=== PATIENT | female | born 1945 | race Caucasian/White ===

== ENCOUNTER 2018-10-09 10:18 | Inpatient (IN) | payer MEDICARE ==
[~2018-10-09] VITALS: Ht 162.6 cm; Wt 59.5 kg
[2018-10-09] MEDS: ALBUTEROL SULF 0.083% NEB SOLN 3 ML NEB NEB SCH ×2 (00:30→14:10)
[~2018-10-09 10:18] MED LIST: AGRYLIN0.5 MG PO; ALENDRONATE SOD70 MG PO; ALLOPURINOL300 MG PO; AMOXICILLIN250 MG PO; ASPIRIN81 MG PEG; CARVEDILOL6.25 MG PO; EVISTA60 MG PO; FUROSEMIDE40 MG PO; KLOR-CON 1010 MEQ PO; LEVOTHYROXINE50 MCG PO; LISINOPRIL10 MG PO; LOVASTATIN40 MG PO; MACROBID 100 M100 MG PO; NITROSTAT0.4 MG SL; NORTRIPTYLINE H50 MG PO; PANTOPRAZOLE SO40 MG PO; SULFAMETHOXAZO1 EAC1 PEG; TEMAZEPAM30 MG PO
--- OUTSIDE RECORDS SUMMARY | 2018-10-09 10:25 | XMS REPORT | Summary of Care ---
Author Organization Unknown Address Unknown Phone Unavailable Encounter [facility] Abby_shlomo(NAVJOT) [id number] Date(s): 01/11/15 - 01/21/15 [facility] [address] [place] [address]- Discharge Disposition: Home Physician Attending: Stefano Black MD Physician Admitting: Stefano Black MD Physician_Referring: Stefano Black MD Vital Signs 1 2 3 Most recent to oldest [Reference Range]: 162.56 cm (01/04/15 11:28 AM) Height 98.3 DegF (01/21/15 4:00 AM) 97.6 DegF (01/21/15 12:07 AM) 98.1 DegF (01/20/15 8:12 PM) Temperature Oral [96.4-99.1 DegF] 143/57 mmHg *HI* (01/21/15 4:00 AM) 146/61 mmHg *HI* (01/21/15 12:07 AM) 149/55 mmHg *HI* (01/20/15 8:12 PM) Blood Pressure [90-140/60-90 mmHg] 16 BRMIN (01/21/15 4:00 AM) 18 BRMIN (01/21/15 12:07 AM) 16 BRMIN (01/20/15 8:12 PM) Respiratory Rate [14-20 BRMIN] 71 bpm (01/21/15 4:00 AM) 76 bpm (01/21/15 12:07 AM) 80 bpm (01/20/15 8:12 PM) Peripheral Pulse Rate [60-100 bpm] 62.727 kg (01/04/15 11:28 AM) Weight 23.74 m2 (01/04/15 11:28 AM) Body Mass Index Problem List Condition Effective Dates Status Health Status Informant Coronary artery Active disease(Confirmed) Heart Active disease(Confirmed) Hypertension(Confirm Active ed) Hypothyroid(Confirme Active d) Incontinence of Active urine(Confirmed) Allergies, Adverse Reactions, Alerts Substance Reaction Severity Status codeine Active penicillins Active Medications allopurinol 300 mg, 1 tab, Route: PO, Drug form: TAB, Daily, Dosing Weight 62.727, kg, Start date: 01/12/15 9:00:00, Duration: 30 day, Stop date: 02/10/15 9:00:00 Notes: (Same as: Zyloprim) Start Date: 01/12/15 Stop Date: 01/17/15 Status: Discontinued allopurinol 300 mg, 1 tab, Route: PO, Drug form: TAB, Daily, Dosing Weight 62.727, kg, Start date: 01/20/15 9:00:00, Duration: 30 day, Stop date: 02/18/15 9:00:00 Notes: (Same as: Zyloprim) Start Date: 01/20/15 Stop Date: 01/21/15 Status: Discontinued allopurinol 300 mg oral tablet 300 mg=1 tab, PO, Daily, # 30 tab, 0 Refill(s) Start Date: 01/04/15 Status: Ordered aspirin 81 mg, 1 tab, Route: PO, Drug form: ECTAB, Daily, Dosing Weight 62.727, kg, Star t date: 01/20/15 9:00:00, Duration: 30 day, Stop date: 02/18/15 9:00:00 Notes: Do not crush or chew.(Same As: Ecotrin) Start Date: 01/20/15 Stop Date: 01/21/15 Status: Discontinued aspirin 81 mg tablet, enteric coated 81 mg=1 tab, PO, Daily, # 0 tab, 0 Refill(s) Start Date: 01/04/15 Status: Ordered atorvastatin 20 mg, 2 tab, Route: PO, Drug form: TAB, Bedtime, Start date: 01/11/15 21:00:00, Duration: 30 day, Stop date: 02/09/15 21:00:00 Notes: (Same As: Lipitor) Start Date: 01/11/15 Stop Date: 01/17/15 Status: Discontinued Benadryl 12.5 mg, 0.25 mL, Route: IV, Drug form: INJ, Q6H, Dosing Weight 62.727, kg, PRN Insomnia, Start date: 01/17/15 21:54:00, Duration: 30 day, Stop date: 02/16/15 2 1:53:00 Notes: (Same as: Benadryl) Start Date: 01/17/15 Stop Date: 01/21/15 Status: Discontinued carvedilol 6.25 mg, 2 tab, Route: PO, Drug form: TAB, Q12H, Dosing Weight 62.727, kg, Start date: 01/11/15 21:00:00, Duration: 30 day, Stop date: 02/10/15 9:00:00 Notes: Give with food. (Same As: Coreg) Start Date: 01/11/15 Stop Date: 01/17/15 Status: Discontinued carvedilol 6.25 mg oral tablet 6.25 mg=1 tab, PO, Q12H, # 60 tab, 0 Refill(s) Start Date: 01/04/15 Status: Ordered ciprofloxacin (SCIP) 400 mg, 200 mL, Route: IVPB, Drug form: INJ, Q12H, Dosing Weight 62.727, kg, Sta rt date: 01/11/15 21:00:00, Duration: 1 doses or times, Stop date: 01/11/15 21:0 0:00 Notes: Do not refrigerate Start Date: 01/11/15 Stop Date: 01/11/15 Status: Completed Colace 100 mg oral capsule 100 mg=1 cap, PO, BID, Constipation, # 20 cap, 0 Refill(s) Start Date: 01/21/15 Status: Ordered Coreg 6.25 mg, 2 tab, Route: PO, Drug form: TAB, Q12H, Dosing Weight 62.727, kg, Start date: 01/19/15 21:00:00, Duration: 30 day, Stop date: 02/18/15 9:00:00 Notes: Give with food. (Same As: Coreg) Start Date: 01/19/15 Stop Date: 01/21/15 Status: Discontinued D5W 1/2NS + KCL 20mEq/L 1000ml (Premix) 1,000 mL 1,000 mL, Rate: 75 ml/hr, Infuse over: 13.3 hr, Route: IV, Dosing Weight 62.727 kg, Total Volume: 1,000, Start date: 01/11/15 13:00:00, Stop date: 02/10/15 12:5 9:00 Notes: PREMIX IV - Do Not Alter Start Date: 01/11/15 Stop Date: 01/20/15 Status: Discontinued Dextrose 50% Syringe 25 gm, 50 mL, Route: IVP, Drug Form: INJ, Dosing Weight 62.727, kg, PRN, PRN Blo od Glucose Results, Start date: 01/18/15 14:02:00, Duration: 30 day, Stop date: 02/17/15 15:01:00 Start Date: 01/18/15 Stop Date: 01/21/15 Status: Discontinued Dextrose 50% Syringe 12.5 gm, 25 mL, Route: IVP, Drug Form: INJ, Dosing Weight 62.727, kg, PRN, PRN B lood Glucose Results, Start date: 01/18/15 14:02:00, Duration: 30 day, Stop date : 02/17/15 15:01:00 Start Date: 01/18/15 Stop Date: 01/21/15 Status: Discontinued enoxaparin 40 mg, 0.4 mL, Route: SUB-Q, Drug form: INJ, [id number], Dosing Weight 62.727, kg, Start date: 01/11/15 15:00:00, Duration: 30 day, Stop date: 02/09/15 15:00:00 Notes: (Same as: Lovenox) Start Date: 01/11/15 Stop Date: 01/21/15 Status: Discontinued erythromycin + Sodium Chloride 0.9% IV 100 mL 250 mg, Route: IVPB, [id number], Dosing Weight 62.727, kg, Priority: NOW, Start date : 01/17/15 18:47:00, Stop date: 01/18/15 20:00:00 Notes: (Same as: erythromycin lactobionate) Start Date: 01/17/15 Stop Date: 01/18/15 Status: Completed famotidine 20 mg, 1 tab, Route: PO, Drug form: TAB, Q12H, Dosing Weight 62.727, kg, Start d ate: 01/11/15 21:00:00, Duration: 30 day, Stop date: 02/10/15 9:00:00 Notes: (Same as: Pepcid) Start Date: 01/11/15 Stop Date: 01/17/15 Status: Discontinued Ferrlecit + Sodium Chloride 0.9% IV 100 mL 125 mg, 10 mL, Route: IVPB, Drug form: INJ, ONCE, Dosing Weight 62.727, kg, Star t date: 01/19/15 16:30:00, Stop date: 01/19/15 16:30:00 Notes: (sodium ferric gluconate complex (elemental iron) 62.5 mg/5 ml INJ)"Limit ed stability. Use immediately after admixture" (Same as: Ferrlecit) Start Date: 01/19/15 Stop Date: 01/19/15 Status: Completed ferrous sulfate 325 mg, 1 tab, Route: PO, Drug form: ECTAB, Daily, Dosing Weight 62.727, kg, Sta rt date: 01/20/15 9:00:00, Duration: 30 day, Stop date: 02/18/15 9:00:00 Notes: Give with food. "Do Not Crush" Start Date: 01/20/15 Stop Date: 01/21/15 Status: Discontinued ferrous sulfate 325 mg oral enteric coated tablet 325 mg=1 tab, PO, Daily, # 30 tab, 0 Refill(s) Start Date: 01/21/15 Status: Ordered Flagyl 500 mg, 100 mL, Route: IVPB, Drug form: INJ, [id number], Dosing Weight 62.727, kg, S tart date: 01/19/15 16:00:00, Duration: 30 day, Stop date: 02/18/15 8:00:00 Notes: (Same as: Flagyl) Avoid alcohol. Start Date: 01/19/15 Stop Date: 01/21/15 Status: Discontinued Flagyl 375 oral capsule 375 mg=1 cap, PO, BID, # 20 cap, 0 Refill(s) Start Date: 01/21/15 Stop Date: 01/31/15 Status: Ordered furosemide 40 mg, 4 mL, Route: IVP, Drug form: INJ, Daily, Dosing Weight 62.727, kg, Start date: 01/18/15 17:03:00, Duration: 30 day, Stop date: 02/17/15 9:00:00 Notes: (Same as: Lasix) Start Date: 01/18/15 Stop Date: 01/20/15 Status: Discontinued furosemide 40 mg oral tablet 40 mg=1 tab, PO, Daily, # 30 tab, 0 Refill(s) Start Date: 01/04/15 Status: Ordered furosemide 40 mg oral tablet 40 mg, 1 tab, Route: PO, Drug form: TAB, Daily, Dosing Weight 62.727, kg, Start date: 01/12/15 9:00:00, Duration: 30 day, Stop date: 02/10/15 9:00:00 Notes: (Same as: Lasix) May cause GI upset. Give with food or milk. Start Date: 01/12/15 Stop Date: 01/18/15 Status: Discontinued glucagon 1 mg, Route: IM, Drug form: PDR/INJ, PRN, Dosing Weight 62.727, kg, PRN Blood Gl ucose Results, Start date: 01/18/15 14:02:00, Duration: 30 day, Stop date: 02/17 15:01:00 Start Date: 01/18/15 Stop Date: 01/21/15 Status: Discontinued hydrALAZINE 10 mg, 0.5 mL, Route: IV, Drug form: INJ, TID, Dosing Weight 62.727, kg, PRN Hyp ertension, SBP > 170, Start date: 01/17/15 21:54:00, Duration: 30 day, Stop date: 02/16/15 21:53:00 Notes: (Same as: Apresoline)Push over 5 minutes Start Date: 01/17/15 Stop Date: 01/21/15 Status: Discontinued insulin aspart 2 unit, 0.02 mL, Route: SUB-Q, Drug form: SOLN, Sliding Scale, Dosing Weight 62. 727, kg, PRN Blood Glucose Results, Start date: 01/18/15 14:02:00, Duration: 30 day, Stop date: 02/17/15 15:01:00 Notes: Roll in palms of hands gently; Do not shake vigorously. (Same as: NovoLO G)"single patient use only" Stable for 28 days at room temperature.Expires in _ ____ days from Date Start Date: 01/18/15 Stop Date: 01/21/15 Status: Discontinued insulin aspart 1 unit, 0.01 mL, Route: SUB-Q, Drug form: SOLN, Sliding Scale, Dosing Weight 62. 727, kg, PRN Blood Glucose Results, Start date: 01/18/15 14:02:00, Duration: 30 day, Stop date: 02/17/15 15:01:00 Notes: Roll in palms of hands gently; Do not shake vigorously. (Same as: NovoLO G)"single patient use only" Stable for 28 days at room temperature.Expires in _ ____ days from Date Start Date: 01/18/15 Stop Date: 01/21/15 Status: Discontinued insulin aspart 3 unit, 0.03 mL, Route: SUB-Q, Drug form: SOLN, Sliding Scale, Dosing Weight 62. 727, kg, PRN Blood Glucose Results, Start date: 01/18/15 14:02:00, Duration: 30 day, Stop date: 02/17/15 15:01:00 Notes: Roll in palms of hands gently; Do not shake vigorously. (Same as: NovoLO G)"single patient use only" Stable for 28 days at room temperature.Expires in _ ____ days from Date Start Date: 01/18/15 Stop Date: 01/21/15 Status: Discontinued insulin aspart 4 unit, 0.04 mL, Route: SUB-Q, Drug form: SOLN, Sliding Scale, Dosing Weight 62. 727, kg, PRN Blood Glucose Results, Start date: 01/18/15 14:02:00, Duration: 30 day, Stop date: 02/17/15 15:01:00 Notes: Roll in palms of hands gently; Do not shake vigorously. (Same as: NovoLO G)"single patient use only" Stable for 28 days at room temperature.Expires in _ ____ days from Date Start Date: 01/18/15 Stop Date: 01/21/15 Status: Discontinued insulin aspart 5 unit, 0.05 mL, Route: SUB-Q, Drug form: SOLN, Sliding Scale, Dosing Weight 62. 727, kg, PRN Blood Glucose Results, Start date: 01/18/15 14:02:00, Duration: 30 day, Stop date: 02/17/15 15:01:00 Notes: Roll in palms of hands gently; Do not shake vigorously. (Same as: NovoLO G)"single patient use only" Stable for 28 days at room temperature.Expires in _ ____ days from Date Start Date: 01/18/15 Stop Date: 01/21/15 Status: Discontinued Klor-Con 10 PO, BID, 0 Refill(s) Start Date: 01/04/15 Status: Ordered Lactated Ringers Injection IV 1000 mL 1,000 mL, Rate: 25 ml/hr, Infuse over: 40 hr, Route: IV, Dosing Weight 62.727 kg , Total Volume: 1,000, Start date: 01/11/15 6:51:00, Duration: 30 day, Stop date : 02/10/15 6:50:00 Start Date: 01/11/15 Stop Date: 01/11/15 Status: Discontinued Lasix 40 mg oral tablet 40 mg, 1 tab, Route: PO, Drug form: TAB, Daily, Dosing Weight 62.727, kg, Start date: 01/21/15 9:00:00, Duration: 30 day, Stop date: 02/19/15 9:00:00 Notes: (Same as: Lasix) May cause GI upset. Give with food or milk. Start Date: 01/21/15 Stop Date: 01/21/15 Status: Discontinued levothyroxine 50 microgram, 1 tab, Route: PO, Drug form: TAB, [id number], Dosing Weight 62.727, kg , Start date: 01/20/15 6:30:00, Duration: 30 day, Stop date: 02/18/15 6:30:00 Notes: Take 1 hour before or 2 hours after meal; Enteral feeds may interefere wi th the absorption of this medication.(Same as:Levothroid, Synthroid) Start Date: 01/20/15 Stop Date: 01/21/15 Status: Discontinued levothyroxine 50 microgram, 1 tab, Route: PO, Drug form: TAB, Daily, Dosing Weight 62.727, kg, Start date: 01/12/15 9:00:00, Duration: 30 day, Stop date: 02/10/15 9:00:00 Notes: Take 1 hour before or 2 hours after meal; Enteral feeds may interefere wi th the absorption of this medication.(Same as:Levothroid, Synthroid) Start Date: 01/12/15 Stop Date: 01/17/15 Status: Discontinued levothyroxine 50 mcg (0.05 mg) oral tablet 50 microgram=1 tab, PO, Daily, # 60 tab, 0 Refill(s) Start Date: 01/04/15 Status: Ordered Lipitor 20 mg, 2 tab, Route: PO, Drug form: TAB, Bedtime, Start date: 01/19/15 21:00:00, Duration: 30 day, Stop date: 02/17/15 21:00:00 Notes: (Same As: Lipitor) Start Date: 01/19/15 Stop Date: 01/21/15 Status: Discontinued lisinopril 5 mg, 1 tab, Route: PO, Drug form: TAB, Daily, Dosing Weight 62.727, kg, Start d ate: 01/20/15 9:00:00, Duration: 30 day, Stop date: 02/18/15 9:00:00 Notes: (Same as: Prinivil, Zestril) Start Date: 01/20/15 Stop Date: 01/21/15 Status: Discontinued lisinopril 5 mg, 1 tab, Route: PO, Drug form: TAB, Daily, Dosing Weight 62.727, kg, Start d ate: 01/12/15 9:00:00, Duration: 30 day, Stop date: 02/10/15 9:00:00 Notes: (Same as: Prinivil, Zestril) Start Date: 01/12/15 Stop Date: 01/17/15 Status: Discontinued lisinopril 5 mg oral tablet 5 mg=1 tab, PO, Daily, # 30 tab, 0 Refill(s) Start Date: 01/04/15 Status: Ordered lovastatin 40 mg, Route: PO, Drug form: TAB, Bedtime, Dosing Weight 62.727, kg, Start date: 01/11/15 21:00:00, Duration: 30 day, Stop date: 02/09/15 21:00:00 Start Date: 01/11/15 Stop Date: 01/11/15 Status: Deleted lovastatin 40 mg, Route: PO, Drug form: TAB, Bedtime, Dosing Weight 62.727, kg, Start date: 01/19/15 21:00:00, Duration: 30 day, Stop date: 02/17/15 21:00:00 Start Date: 01/19/15 Stop Date: 01/19/15 Status: Deleted lovastatin 40 mg oral tablet 40 mg=1 tab, PO, Bedtime, # 30 tab, 0 Refill(s) Start Date: 01/04/15 Status: Ordered magnesium sulfate 2 gm in Water 50 ml 2 gm, 50 mL, Route: IVPB, Drug form: INJ, ONCE, Dosing Weight 62.727, kg, Start date: 01/20/15 11:21:00, Duration: 2 hr, Stop date: 01/20/15 11:21:00 Start Date: 01/20/15 Stop Date: 01/20/15 Status: Completed metoprolol 5 mg/5 ml INJ 2.5 mg, 2.5 mL, Route: IVP, Drug form: INJ, Q6H, Dosing Weight 62.727, kg, Start date: 01/19/15 12:00:00, Duration: 30 day, Stop date: 02/18/15 6:00:00 Notes: (Same as: Lopressor)Push over 2 minutes Start Date: 01/19/15 Stop Date: 01/19/15 Status: Discontinued morphine 1 mg/ml [employer] (30 mg/30 mL) INJ Syringe 30 mg 30 mg, 30 mL, Route: IV, Initial Loading Dose: 2 mg, [employer] Dose: 1 mg, [employer] Lockou t: 10 minutes, Continuous Basal Rate: 0 mg, 4 Hour Limit (In MG): 30, Drug Form: INJ, Continuous, Start date: 01/11/15 13:00:00, Duration: 30 day, Stop date: 13:5... Notes: Dose: Delay: Basal rate: 4hr limit:( Same as:Elsai-Clayton) Start Date: 01/11/15 Stop Date: 01/18/15 Status: Discontinued morphine Sulfate 0.5 mg, 0.25 mL, Route: IVP, Drug form: INJ, Q2H, Dosing Weight 62.727, kg, PRN Pain Score 7-10, Start date: 01/17/15 17:44:00, Duration: 30 day, Stop date: 17:43:00 Notes: (Same as:MORPhine Sulfate) Start Date: 01/17/15 Stop Date: 01/21/15 Status: Discontinued naloxone 0.04 mg, 0.1 mL, Route: IVP, Drug form: INJ, Q2MIN, Dosing Weight 62.727, kg, NH N Narcotic Reversal, Start date: 01/11/15 13:00:00, Duration: 30 day, Stop date: 02/10/15 13:59:00 Notes: Same as Narcan Start Date: 01/11/15 Stop Date: 01/21/15 Status: Discontinued Nitrostat 0.4 mg sublingual tablet 0.4 mg=1 tab, SL, Q5Min, Chest Pain, # 100 tab, 0 Refill(s) Start Date: 01/04/15 Status: Ordered Nitrostat 0.4 mg sublingual tablet 0.4 mg, 1 tab, Route: SL, Drug form: TAB, Q5Min, Dosing Weight 62.727, kg, PRN a s needed for chest pain, Start date: 01/11/15 13:10:00, Duration: 30 day, Stop d ate: 02/10/15 14:09:00 Notes: (Same as:Nitroquick, Nitrostat)"Do Not Crush" Sublingual tablet Start Date: 01/11/15 Stop Date: 01/21/15 Status: Discontinued nortriptyline 50 mg, 1 cap, Route: PO, Drug form: CAP, Daily, Dosing Weight 62.727, kg, Start date: 01/12/15 9:00:00, Stop date: 02/10/15 21:00:00 Notes: (Same as:Pamelnicolasa Aventyl) Start Date: 01/12/15 Stop Date: 01/17/15 Status: Discontinued nortriptyline 50 mg oral capsule 50 mg=1 cap, PO, Daily, # 90 cap, 0 Refill(s) Start Date: 01/04/15 Status: Ordered Ofirmev 1,000 mg, 100 mL, Route: IV, Drug form: INJ, Q6H, Dosing Weight 62.727, kg, PRN Pain Score 1-3, for > or=50 kg, Start date: 01/17/15 17:44:00, Duration: 30 day, Stop date: 02/16/15 17:43:00 Notes: Infuse over 15 minutes Do not exceed 4gm/day of acetaminophen Start Date: 01/17/15 Stop Date: 01/21/15 Status: Discontinued ondansetron 4 mg, 2 mL, Route: IVP, Drug form: INJ, Q4H, Dosing Weight 62.727, kg, PRN Nause a & Vomiting, Start date: 01/15/15 10:33:00, Duration: 30 day, Stop date: 02/14/15 10:32:00 Notes: (Same as: Zofran) Start Date: 01/15/15 Stop Date: 01/21/15 Status: Discontinued ondansetron 4 mg, 2 mL, Route: IVP, Drug form: INJ, Q6H, Dosing Weight 62.727, kg, PRN Nause a & Vomiting, Start date: 01/11/15 13:00:00, Duration: 30 day, Stop date: 02/10/15 12:59:00 Notes: (Same as: Zofran) Start Date: 01/11/15 Stop Date: 01/15/15 Status: Discontinued oxybutynin 5 mg, 1 tab, Route: PO, Drug form: TAB, TID, Dosing Weight 62.727, kg, PRN Bladd er Spasm, Start date: 01/11/15 13:00:00, Duration: 30 day, Stop date: 02/10/15 1 2:59:00 Notes: Same as: Ditropan) Start Date: 01/11/15 Stop Date: 01/17/15 Status: Discontinued pantoprazole 40 mg, 1 tab, Route: PO, Drug form: ECTAB, Daily, Dosing Weight 62.727, kg, Star t date: 01/12/15 9:00:00, Duration: 30 day, Stop date: 02/10/15 9:00:00 Notes: Tablet should not be chewed or crushed.(Same as: Protonix) Start Date: 01/12/15 Stop Date: 01/17/15 Status: Discontinued pantoprazole 40 mg oral enteric coated tablet 40 mg=1 tab, PO, Daily, # 30 tab, 0 Refill(s) Start Date: 01/04/15 Status: Ordered Pepto-Bismol 87.3333 mg, 5 ml, Route: PO, Drug Form: SUSP, Dosing Weight 62.727, kg, QID, PRN Indigestion, Start date: 01/16/15 12:00:00, Duration: 30 day, Stop date: 11:59:00 Notes: (Same As: Pepto Bismol and Kaopectate) Start Date: 01/16/15 Stop Date: 01/21/15 Status: Discontinued Phenergan + Sodium Chloride 0.9% IV 50 mL 12.5 mg, 0.5 mL, Route: IVPB, Q4H, Dosing Weight 62.727, kg, PRN Nausea & Vomiting, Start date: 01/14/15 12:12:00, Duration: 30 day, Stop date: 02/13/15 12:11:00 Notes: Do not give IV push. (Same as: Phenergan) Start Date: 01/14/15 Stop Date: 01/15/15 Status: Discontinued potassium chloride 10 mEq oral tablet, extended release 10 mEq, 1 tab, Route: PO, Drug form: ERTAB, Q12H, Dosing Weight 62.727, kg, Star t date: 01/19/15 21:00:00, Duration: 30 day, Stop date: 02/18/15 9:00:00 Notes: (Same as: K-Dur 10)"Do Not Crush" With food and full glass of water Start Date: 01/19/15 Stop Date: 01/21/15 Status: Discontinued Protonix 40 mg, 1 tab, Route: PO, Drug form: ECTAB, Before Breakfast, Dosing Weight 62.72 7, kg, Start date: 01/20/15 7:30:00, Duration: 30 day, Stop date: 02/18/15 7:30: 00 Notes: Tablet should not be chewed or crushed.(Same as: Protonix) Start Date: 01/20/15 Stop Date: 01/21/15 Status: Discontinued Reglan 10 mg, 2 mL, Route: IVP, Drug form: INJ, Q6H, Dosing Weight 62.727, kg, PRN Naus ea & Vomiting, Start date: 01/19/15 12:29:00, Duration: 30 day, Stop date: 02/18/15 12:28:00 Notes: (Same as: Reglan) Start Date: 01/19/15 Stop Date: 01/21/15 Status: Discontinued Saline Flush 0.9% 10 ml, Route: IVP, Drug Form: INJ, Dosing Weight 62.727, kg, PRN, PRN Line Flush , Start date: 01/20/15 7:16:00, Duration: 30 day, Stop date: 02/19/15 8:15:00 Start Date: 01/20/15 Stop Date: 01/20/15 Status: Deleted Saline Flush 0.9% 10 ml, Route: IVP, Drug Form: INJ, Dosing Weight 62.727, kg, Q12H, Start date: 0 01/20/15 9:00:00, Duration: 30 day, Stop date: 02/18/15 21:00:00 Notes: (Same as: BD Posiflush) Start Date: 01/20/15 Stop Date: 01/21/15 Status: Discontinued Saline Flush 0.9% 10 ml, Route: IVP, Drug Form: INJ, Dosing Weight 62.727, kg, PRN, PRN Line Flush , Start date: 01/11/15 13:00:00, Duration: 30 day, Stop date: 02/10/15 13:59:00 Notes: Same as: BD Posiflush Sterile Start Date: 01/11/15 Stop Date: 01/21/15 Status: Discontinued scopolamine 1.5 mg transdermal film 1 patch, Route: TOP, Drug Form: ERFILM, Dosing Weight 62.727, kg, ONCALL, Start date: 01/11/15 7:00:00, Duration: 30 day, Stop date: 02/10/15 7:59:00 Start Date: 01/11/15 Stop Date: 01/11/15 Status: Completed temazepam 30 mg, 2 cap, Route: PO, Drug form: CAP, Bedtime, Dosing Weight 62.727, kg, PRN Sleep, Start date: 01/19/15 16:28:00, Duration: 30 day, Stop date: 02/18/15 16:2 7:00 Notes: (Same As: Restoril) Start Date: 01/19/15 Stop Date: 01/21/15 Status: Discontinued temazepam 30 mg, 2 cap, Route: PO, Drug form: CAP, Bedtime, Dosing Weight 62.727, kg, Star t date: 01/11/15 21:00:00, Duration: 30 day, Stop date: 02/09/15 21:00:00 Notes: (Same As: Restoril) Start Date: 01/11/15 Stop Date: 01/17/15 Status: Discontinued temazepam 30 mg oral capsule 30 mg=1 cap, PO, Daily, Sleep, 0 Refill(s) Start Date: 01/04/15 Status: Ordered tramadol 50 mg oral tablet 50 mg=1 tab, PO, Q6H, Pain, # 40 tab, 0 Refill(s) Start Date: 01/21/15 Stop Date: 01/31/15 Status: Ordered tramadol 50 mg oral tablet 50 mg, 1 tab, Route: PO, Drug form: TAB, Q6H, Dosing Weight 62.727, kg, PRN Pain Score 1-3, Start date: 01/12/15 14:21:00, Stop date: 02/11/15 14:20:00 Notes: Not to exceed 400mg/day. (Same As: Ultram) Start Date: 01/12/15 Stop Date: 01/21/15 Status: Discontinued Results ELECTROLYTES 1 2 3 Most recent to oldest [Reference Range]: 140 mEq/L (01/21/15 5:36 AM) 136 mEq/L (01/19/15 7:30 AM) 134 mEq/L *LOW* (01/18/15 10:36 AM) Sodium Lvl [135-145 mEq/L] 3.3 mEq/L *LOW* (01/21/15 5:36 AM) 4.2 mEq/L (01/19/15 7:30 AM) 4.4 mEq/L (01/18/15 10:36 AM) Potassium Lvl [3.5-5.1 mEq/L] 107 mEq/L (01/21/15 5:36 AM) 101 mEq/L (01/19/15 7:30 AM) 98 mEq/L (01/18/15 10:36 AM) Chloride Lvl [95-109 mEq/L] 25 mEq/L (01/21/15 5:36 AM) 28 mEq/L (01/19/15 7:30 AM) 29 mEq/L (01/18/15 10:36 AM) CO2 [24-32 mEq/L] 11.3 mEq/L (01/21/15 5:36 AM) 11.2 mEq/L (01/19/15 7:30 AM) 11.4 mEq/L (01/18/15 10:36 AM) AGAP [10.0-20.0 mEq/L] CHEM PANEL 1 2 3 Most recent to oldest [Reference Range]: 0.9 mg/dL (01/21/15 5:36 AM) 0.8 mg/dL (01/19/15 7:30 AM) 1.0 mg/dL (01/18/15 10:36 AM) Creatinine Lvl [0.5-1.4 mg/dL] 65 mL/min/1.73m2 1 *NA* (01/21/15 5:36 AM) 74 mL/min/1.73m2 2 *NA* (01/19/15 7:30 AM) 57 mL/min/1.73m2 3 *NA* (01/18/15 10:36 AM) eGFR 6 mg/dL *LOW* (01/21/15 5:36 AM) 8 mg/dL (01/19/15 7:30 AM) 9 mg/dL (01/18/15 10:36 AM) BUN [7-22 mg/dL] 10 (01/19/15 7:30 AM) B/C Ratio [6-25] 101 mg/dL 4 *HI* (01/21/15 5:36 AM) 99 mg/dL 5 (01/19/15 7:30 AM) 122 mg/dL 6 *HI* (01/18/15 10:36 AM) Glucose Lvl [70-99 mg/dL] 4.8 g/dL *LOW* (01/19/15 7:30 AM) Total Protein [6.4-8.4 g/dL] 2.1 g/dL *LOW* (01/19/15 7:30 AM) Albumin Lvl [3.5-5.0 g/dL] 2.7 g/dL (01/19/15 7:30 AM) Globulin [2.0-4.0 g/dL] 0.8 (01/19/15 7:30 AM) A/G Ratio [0.7-1.6] 7.7 mg/dL *LOW* (01/21/15 5:36 AM) 8.0 mg/dL *LOW* (01/19/15 7:30 AM) 8.1 mg/dL *LOW* (01/18/15 10:36 AM) Calcium Lvl [8.5-10.5 mg/dL] 3.4 mg/dL (01/21/15 5:36 AM) 2.7 mg/dL (01/20/15 7:11 AM) 3.1 mg/dL (01/19/15 7:30 AM) Phosphorus [2.5-4.5 mg/dL] 2.0 mg/dL (01/21/15 5:36 AM) 1.6 mg/dL *LOW* (01/20/15 7:11 AM) 1.9 mg/dL (01/19/15 7:30 AM) Magnesium Lvl [1.8-2.4 mg/dL] 12 unit/L (01/19/15 7:30 AM) ALT [0-65 unit/L] 12 unit/L (01/19/15 7:30 AM) AST [0-37 unit/L] 126 unit/L (01/19/15 7:30 AM) Alk Phos [39-136 unit/L] 0.7 mg/dL (01/19/15 7:30 AM) Bili Total [0.2-1.3 mg/dL] 43 unit/L (01/20/15 7:11 AM) Amylase Lvl [25-115 unit/L] 327 unit/L (01/20/15 7:11 AM) Lipase Lvl [73-393 unit/L] 0.25 ng/mL *HI* (01/18/15 5:25 PM) Procalcitonin Lvl [0.00-0.10 ng/mL] 1Result Comment: The eGFR is calculated using the CKD-EPI formula. In most young, healthy individuals the eGFR will be >90 mL/min/1.73m2. The eGFR declines with age. An eGFR of 60-89 may be normal in some populations, particularly the elderly, for whom the CKD-EPI formula has not been extensively validated. Use of the eGFR is not recommended in the following populations: Individuals with unstable creatinine concentrations, including patients and those with serious co-morbid conditions. Patients with extremes in muscle mass or diet. The data above are obtained from the [employer] ( [employer]) which additionally recommends that when the eGFR is used in patients with extremes of body mass index for purposes of drug dosing, the eGFR should be mul tiplied by the estimated BMI. 2Result Comment: The eGFR is calculated using the CKD-EPI formula. In most young, healthy individuals the eGFR will be >90 mL/min/1.73m2. The eGFR declines with age. An eGFR of 60-89 may be normal in some populations, particularly the elderly, for whom the CKD-EPI formula has not been extensively validated. Use of the eGFR is not recommended in the following populations: Individuals with unstable creatinine concentrations, including patients and those with serious co-morbid conditions. Patients with extremes in muscle mass or diet. The data above are obtained from the National Kidney Disease Education Program ( NKDEP) which additionally recommends that when the eGFR is used in patients with extremes of body mass index for purposes of drug dosing, the eGFR should be mul tiplied by the estimated BMI. 3Result Comment: The eGFR is calculated using the CKD-EPI formula. In most young, healthy individuals the eGFR will be >90 mL/min/1.73m2. The eGFR declines with age. An eGFR of 60-89 may be normal in some populations, particularly the elderly, for whom the CKD-EPI formula has not been extensively validated. Use of the eGFR is not recommended in the following populations: Individuals with unstable creatinine concentrations, including patients and those with serious co-morbid conditions. Patients with extremes in muscle mass or diet. The data above are obtained from the National Kidney Disease Education Program ( NKDEP) which additionally recommends that when the eGFR is used in patients with extremes of body mass index for purposes of drug dosing, the eGFR should be mul tiplied by the estimated BMI. 4Interpretive Data: Adult reference range values reflect the clinical guidelines of the [employer]. 5Interpretive Data: Adult reference range values reflect the clinical guidelines of the [employer]. 6Interpretive Data: Adult reference range values reflect the clinical guidelines of the [employer]. ANEMIA STUDY 1 2 3 Most recent to oldest [Reference Range]: 19 ug/dl *LOW* (01/19/15 7:30 AM) Iron [30-160 ug/dl] 46 ng/mL (01/19/15 7:30 AM) Ferritin Lvl [5-204 ng/mL] 9 % *LOW* (01/19/15 7:30 AM) % Satur Fe [12-57 %] 204 ug/dl (01/19/15 7:30 AM) UIBC [110-370 ug/dl] 983 pg/mL (01/19/15 7:30 AM) Vitamin B12 Lvl [254-1320 pg/mL] 10.1 ng/mL (01/19/15 7:30 AM) Folate Lvl [>=3.0 ng/mL] 223 ug/dl *LOW* (01/19/15 7:30 AM) TIBC [228-428 ug/dl] THYROID PANEL 1 2 3 Most recent to oldest [Reference Range]: 39 % (01/18/15 10:36 AM) T3 Uptake [31-39 %] 10.3 ug/dl (01/18/15 10:36 AM) T4 [4.7-13.3 ug/dl] 4.0 *NA* (01/18/15 10:36 AM) FTI 2.520 uIU/mL (01/18/15 10:36 AM) TSH [0.360-3.740 uIU/mL] URINE AND STOOL 1 2 3 Most recent to oldest [Reference Range]: Clear (01/18/15 6:35 PM) Clear (01/13/15 5:57 PM) Marked *ABN* (01/04/15 11:31 AM) UA Turbidity [Clear] Ltyellow *NA* (01/18/15 6:35 PM) Ltyellow *NA* (01/13/15 5:57 PM) UA Color Yellow *NA* (01/04/15 11:31 AM) UA Color [Yellow] 6.0 (01/18/15 6:35 PM) 5.0 (01/13/15 5:57 PM) 6.0 (01/04/15 11:31 AM) UA pH [5.0-8.0] 1.005 (01/18/15 6:35 PM) 1.014 (01/13/15 5:57 PM) 1.005 (01/04/15 11:31 AM) UA Spec Grav [<=1.030] Negative mg/dL *NA* (01/18/15 6:35 PM) Negative mg/dL *NA* (01/13/15 5:57 PM) Negative mg/dL *NA* (01/04/15 11:31 AM) UA Glucose [Negative mg/dL] Negative (01/18/15 6:35 PM) Small *ABN* (01/13/15 5:57 PM) Negative (01/04/15 11:31 AM) UA Blood [Negative] Negative mg/dL *NA* (01/18/15 6:35 PM) Negative mg/dL *NA* (01/13/15 5:57 PM) Negative mg/dL *NA* (01/04/15 11:31 AM) UA Ketones [Negative mg/dL] Negative mg/dL (01/18/15 6:35 PM) Negative mg/dL (01/13/15 5:57 PM) Negative mg/dL (01/04/15 11:31 AM) UA Protein [Negative mg/dL] <=1.0 mg/dL *NA* (01/18/15 6:35 PM) <=1.0 mg/dL *NA* (01/13/15 5:57 PM) <=1.0 mg/dL *NA* (01/04/15 11:31 AM) UA Urobilinogen [0.1-1.0 mg/dL] Negative *NA* (01/18/15 6:35 PM) Negative *NA* (01/13/15 5:57 PM) Negative *NA* (01/04/15 11:31 AM) UA Bili [Negative] Large *ABN* (01/18/15 6:35 PM) Trace *ABN* (01/13/15 5:57 PM) Large *ABN* (01/04/15 11:31 AM) UA Leuk Est [Negative] Negative (01/18/15 6:35 PM) Negative (01/13/15 5:57 PM) Negative (01/04/15 11:31 AM) UA Nitrite [Negative] 20 /HPF *HI* (01/18/15 6:35 PM) 8 /HPF *HI* (01/13/15 5:57 PM) >182 /HPF *HI* (01/04/15 11:31 AM) UA WBC [0-5 /HPF] 3 /HPF *HI* (01/18/15 6:35 PM) 2 /HPF (01/13/15 5:57 PM) 21 /HPF *HI* (01/04/15 11:31 AM) UA RBC [0-2 /HPF] Occasional /HPF *NA* (01/18/15 6:35 PM) Few /HPF *NA* (01/04/15 11:31 AM) UA Bacteria [None Seen /HPF] Few /LPF *NA* (01/18/15 6:35 PM) Occasional /LPF *NA* (01/13/15 5:57 PM) UA Sq Epi [Few /LPF] None Seen *NA* (01/04/15 11:31 AM) UA Sq Epi 1 /LPF (01/13/15 5:57 PM) UA Hyal Cast [0-2 /LPF] HEMATOLOGY 1 2 3 Most recent to oldest [Reference Range]: 16.9 K/CMM *HI* (01/21/15 5:36 AM) 16.6 K/CMM *HI* (01/20/15 7:11 AM) 21.6 K/CMM *HI* (01/19/15 7:30 AM) WBC [3.7-10.4 K/CMM] 6.06 M/CMM *HI* (01/21/15 5:36 AM) 5.88 M/CMM *HI* (01/20/15 7:11 AM) 6.25 M/CMM *HI* (01/19/15 7:30 AM) RBC [4.20-5.40 M/CMM] 13.8 g/dL (01/21/15 5:36 AM) 13.3 g/dL (01/20/15 7:11 AM) 14.2 g/dL (01/19/15 7:30 AM) Hgb [12.0-16.0 g/dL] 45.0 % (01/21/15:36 AM) 43.2 % (01/20/15 7:11 AM) 45.4 % (01/19/15:30 AM) Hct [36.0-48.0 %] 74.3 fL *LOW* (01/21/15:36 AM) 73.5 fL *LOW* (01/20/15 7:11 AM) 72.6 fL *LOW* (01/19/15:30 AM) MCV [80.0-98.0 fL] 22.8 pg *LOW* (01/21/15:36 AM) 22.6 pg *LOW* (01/20/15 7:11 AM) 22.7 pg *LOW* (01/19/15:30 AM) MCH [27.0-31.0 pg] 30.8 g/dL *LOW* (01/21/15:36 AM) 30.7 g/dL *LOW* (01/20/15:11 AM) 31.3 g/dL *LOW* (01/19/15:30 AM) MCHC [32.0-36.0 g/dL] 22.1 % *HI* (01/21/15:36 AM) 21.3 % *HI* (01/20/15:11 AM) 21.5 % *HI* (01/19/15:30 AM) RDW [11.5-14.5 %] 599 K/CMM *HI* (01/21/15:36 AM) 607 K/CMM *HI* (01/20/15:11 AM) 654 K/CMM *HI* (01/19/15:30 AM) Platelet [133-450 K/CMM] 7.8 fL (01/21/15:36 AM) 8.5 fL (01/20/15 7:11 AM) 8.2 fL (01/19/15:30 AM) MPV [7.4-10.4 fL] 75.9 % *HI* (01/21/15 5:36 AM) 76.6 % *HI* (01/20/15 7:11 AM) 80.2 % *HI* (3/3/15 7:30 AM) Segs [45.0-75.0 %] 12.4 % *LOW* (01/21/15 5:36 AM) 11.1 % *LOW* (01/20/15 7:11 AM) 9.5 % *LOW* (01/19/15 7:30 AM) Lymphocytes [20.0-40.0 %] 7.5 % (01/21/15 5:36 AM) 7.8 % (01/20/15 7:11 AM) 6.9 % (01/19/15 7:30 AM) Monocytes [2.0-12.0 %] 3.1 % (01/21/15 5:36 AM) 3.3 % (01/20/15 7:11 AM) 2.7 % (01/19/15 7:30 AM) Eosinophils [0.0-4.0 %] 1.1 % *HI* (01/21/15 5:36 AM) 1.2 % *HI* (01/20/15 7:11 AM) 0.7 % (01/19/15 7:30 AM) Basophils [0.0-1.0 %] 12.8 K/CMM *HI* (01/21/15 5:36 AM) 12.7 K/CMM *HI* (01/20/15 7:11 AM) 17.3 K/CMM *HI* (01/19/15 7:30 AM) Segs-Bands # [1.5-8.1 K/CMM] 2.1 K/CMM (01/21/15 5:36 AM) 1.8 K/CMM (01/20/15 7:11 AM) 2.1 K/CMM (01/19/15 7:30 AM) Lymphocytes # [1.0-5.5 K/CMM] 1.3 K/CMM *HI* (01/21/15 5:36 AM) 1.3 K/CMM *HI* (01/20/15 7:11 AM) 1.5 K/CMM *HI* (01/19/15 7:30 AM) Monocytes # [0.0-0.8 K/CMM] 0.5 K/CMM (01/21/15 5:36 AM) 0.5 K/CMM (01/20/15 7:11 AM) 0.6 K/CMM *HI* (01/19/15 7:30 AM) Eosinophils # [0.0-0.5 K/CMM] 0.2 K/CMM (01/21/15 5:36 AM) 0.2 K/CMM (01/20/15 7:11 AM) 0.1 K/CMM (01/19/15 7:30 AM) Basophils # [0.0-0.2 K/CMM] See Note (01/21/15 5:36 AM) RBC Morph 1+ *ABN* (01/04/15 11:31 AM) Anisocyte [None Seen] 1+ (01/20/15 7:11 AM) 1+ (01/11/15 7:50 AM) 1+ (01/04/15 11:31 AM) Hypochrom [None Seen] 1+ *ABN* (01/21/15 5:36 AM) 1+ *ABN* (01/20/15 7:11 AM) 1+ *ABN* (01/19/15 7:30 AM) Microcyte [None Seen] Normal (01/21/15 5:36 AM) Normal (01/20/15 7:11 AM) Normal (01/11/15 7:50 AM) Plt Morph Moderate *ABN* (01/17/15 12:22 PM) Giant Plt [None Seen] Moderate *ABN* (01/17/15 12:22 PM) Large Plt [None Seen] 14.7 seconds (01/04/15 11:31 AM) PT [12.0-14.7 seconds] 1.14 7 (01/04/15 11:31 AM) INR [0.85-1.17] 34.9 seconds 8 (01/04/15 11:31 AM) PTT [22.9-35.8 seconds] 7Interpretive Data: RECOMMENDED RANGES FOR PROTIME INR: 2.0-3.0 for most medical and surgical thromboembolic states. 2.5-3.5 for artificial heart valves and recurrent embolism. INR SHOULD BE USED ONLY FOR PATIENTS ON STABLE ANTICOAGULANT THERAPY. 8Interpretive Data: Heparin Therapeutic Range: 57 - 92 Seconds Immunizations No data available for this section Procedures Procedure Date Related Diagnosis Body Site Appendectomy Cholecystectomy Coronary artery bypass grafts x 4 Hernia repair Social History Social History Type Response Smoking Status Former smoker; Stopped at age: 60; Exposure to Tobacco Smoke None; Cigarette Smoking Last 365 Days No; Reg Smoking Cessation Counseling No Assessment and Plan Extracted from: Title: Clinical Document Author: Franky Tolbert Date: 01/20/15 [facility] Note [facility] Infectious Disease FRANKY JULIAN MD SUBJECTIVES NO N/V/F/D/CHILLS/CP/SOB "I'M GOING HOME TOMORROW" OBJECTIVES Labs (Last four charted values) WBC H 16.6(JAN 20)H 21.6(JAN 19)H 24.1(JAN 18)H 24.5(JAN 17) Hgb 13.3(JAN 20)14.2(JAN 19)15.4(JAN 18)15.3(JAN 17) Hct 43.2(JAN 20)45.4(JAN 19)H 50.0(JAN 18)H 49.3(JAN 17) Plt H 607(JAN 20)H 654(JAN 19)H 666(JAN 18)H 706(JAN 17) Na 136(JAN 19)L 134(JAN 18)137(JAN 15)L 134(JAN 14) K 4.2(JAN 19)4.4(JAN 18)4.4(JAN 15)4.0(JAN 14) CO2 28(JAN 19)29(JAN 18)27(JAN 15)26(JAN 14) Cl 101(JAN 19)98(JAN 18)103(JAN 15)100(JAN 14) Cr 0.8(JAN 19)1.0(JAN 18)0.9(JAN 15)0.9(JAN 14) BUN 8(JAN 19)9(JAN 18)L 6(JAN 15)9(JAN 14) Glucose Random 99(JAN 19)H 122(JAN 18)H 119(JAN 15)H 114(JAN 14) Mg L 1.6(JAN 20)1.9(JAN 19)1.8(JAN 14) Phos 2.7(JAN 20)3.1(JAN 19)2.5(JAN 14) Ca L 8.0(JAN 19)L 8.1(JAN 18)L 7.9(JAN 15)L 8.2(JAN 14) PT 14.7(JAN 04) INR 1.14(JAN 04) PTT 34.9(JAN 04) Vitals and Temp: VitalsTmp(F)[id number] 01/20 12:0997.577293/[id number]--- 01/20 08:2497.727812/687616--- 01/20 04:0098.240998/7016------ 01/20 00:0897.988850/6518------ 01/19 20:[id number]/[id number]--- 24 Hr Tmax: 98.2F (36.78c) at 01/19 20:16Vital Signs are the last 5 in the past 48 hours. KUB: There are postoperative changes of the abdomen. The distal end of a nasogastric tube is visible in the right upper quadrant of the abdomen, presumably within the gastric antrum or proximal duodenum. There is a nonspecific, nonobstructive bowel gas pattern. Oral contrast is noted within the large bowel. There is no evidence of pneumoperitoneum. PHYSICAL EXAM CV S1S2 CHEST FAIR FLOW NO ACUTE DISTRESS ABD SOFT NO TENDER HEENT MOIST EXT NO ACUTE ASSESSMENT LEUKOCYTOSIS- BETTER ABNL URIN CX NOTED PLAN FLAGYL D/W DR. JULIAN Medications (33) Active Scheduled: (13) allopurinol 300 mg TAB 300 mg 1 tab, PO, Daily aspirin 81 mg ECT 81 mg 1 tab, PO, Daily atorvastatin 10 mg TAB 20 mg 2 tab, PO, Bedtime carvedilol 3.125 mg TAB 6.25 mg 2 tab, PO, Q12H enoxaparin 40 mg/0.4 ml INJ 40 mg 0.4 mL, SUB-Q, [id number] ferrous sulfate 325 mg ECT 325 mg 1 tab, PO, Daily furosemide 40 mg TAB 40 mg 1 tab, PO, Daily levothyroxine 50 microgram TAB 50 microgram 1 tab, PO, Q630AM lisinopril 5 mg TAB 5 mg 1 tab, PO, Daily metroNIDAZOLE (5mg/ml) premix INJ 500 mg 100 mL, IVPB, ABXQ8H pantoprazole 40 mg ECT 40 mg 1 tab, PO, Before Breakfast potassium chloride 10 mEq ERT. 10 mEq 1 tab, PO, Q12H sodium chloride 0.9% 10 ml flush syr BD 10 ml, IVP, Q12H Continuous: (0) PRN: (20) Acetaminophen 10 mg/ml 100 ml IV 1,000 mg 100 mL, IV, Q6H BISMUTH subsalicylate oral APOLLO (262mg/15ml --30ml) 87.3333 mg 5 ml, PO, QID Dextrose 50% 50 ml INJ syringe 12.5 gm 25 mL, IVP, PRN Dextrose 50% 50 ml INJ syringe 25 gm 50 mL, IVP, PRN diphenhydrAMINE 50 mg/1 ml INJ 12.5 mg 0.25 mL, IV, Q6H glucagon recombinant 1 mg PDR 1 mg, IM, PRN hydrALAZINE 20 mg/1 ml VL 10 mg 0.5 mL, IV, TID insulin aspart 100 unit/ml 3ml Pen 1 unit 0.01 mL, SUB-Q, Sliding Scale insulin aspart 100 unit/ml 3ml Pen 2 unit 0.02 mL, SUB-Q, Sliding Scale insulin aspart 100 unit/ml 3ml Pen 3 unit 0.03 mL, SUB-Q, Sliding Scale insulin aspart 100 unit/ml 3ml Pen 4 unit 0.04 mL, SUB-Q, Sliding Scale insulin aspart 100 unit/ml 3ml Pen 5 unit 0.05 mL, SUB-Q, Sliding Scale metoclopramide 10 mg/2 ml VL 10 mg 2 mL, IVP, Q6H MORPhine sulfate PF 2 mg/ml CARP 0.5 mg 0.25 mL, IVP, Q2H naloxone 0.4 mg/ml 1ml INJ vial 0.04 mg 0.1 mL, IVP, Q2MIN nitroglycerin 0.4 mg TAB 25's btl 0.4 mg 1 tab, SL, Q5Min ondansetron 4mg/2mL INJ SYRINGE 4 mg 2 mL, IVP, Q4H sodium chloride 0.9% 10ml sterile flush syr BD 10 ml, IVP, PRN temazepam 15 mg CAP 30 mg 2 cap, PO, Bedtime traMADol 50 mg TAB 50 mg 1 tab, PO, Q6H
--- OUTSIDE RECORDS SUMMARY | 2018-10-09 10:25 | XMS REPORT | Summary of Care ---
Author Organization Unknown Address Unknown Phone Unavailable Encounter HQ Abby_shlomo(FIN) [id number] Date(s): 04/14/15 - 04/14/15 [facility] Outpatient Imaging - [place] [address] [place] [address]- [facility] [phone] Discharge Disposition: Home Physician Attending: Nik Nicolas MD Vital Signs No data available for this section Problem List Condition Effective Dates Status Health Status Informant Coronary artery Active disease(Confirmed) Heart Active disease(Confirmed) Hypertension(Confirm Active ed) Hypothyroid(Confirme Active d) Incontinence of Active urine(Confirmed) Allergies, Adverse Reactions, Alerts Substance Reaction Severity Status codeine Active penicillins Active Medications No data available for this section Results No data available for this section Immunizations No data available for this section Procedures Procedure Date Related Diagnosis Body Site Appendectomy Cholecystectomy Coronary artery bypass grafts x 4 Hernia repair Social History Social History Type Response Smoking Status Former smoker; Stopped at age: 60; Exposure to Tobacco Smoke None; Cigarette Smoking Last 365 Days No; Reg Smoking Cessation Counseling No Assessment and Plan No data available for this section
--- OUTSIDE RECORDS SUMMARY | 2018-10-09 10:25 | XMS REPORT | Summary of Care ---
Author Organization Unknown Address Unknown Phone Unavailable Encounter HQ Abby_shlomo(NAVJOT) [id number] Date(s): 02/17/15 - 02/17/15 [facility] [address] [place] [address]- Discharge Disposition: Home Physician Attending: Stefano Black MD Physician_Referring: Stefano Black MD Vital Signs No data available for [...]
--- OUTSIDE RECORDS SUMMARY | 2018-10-09 10:25 | XMS REPORT | Summary of Care ---
Author Organization Unknown Address Unknown Phone Unavailable Encounter HQ Diontr_shlomo([facility]) [id number] Date(s): 08/17/14 - 08/17/14 [facility] Outpatient Imaging - [address] [address] [place] Discharge Disposition: Home Physician Attending: Nik Nicolas MD Reason for Visit 786.9 - RESP SYS/CHEST Problem List No data available for this section Allergies, Adverse Reactions, Alerts No data available for this section Medications No data available for this section Medications Administered During Your Visit No data available for this section Immunizations No data available for this section
--- OUTSIDE RECORDS SUMMARY | 2018-10-09 10:25 | XMS REPORT | Summary of Care ---
Author Organization Unknown Address Unknown Phone Unavailable Encounter HQ Abby_shlomo(NAVJOT) [id number] Date(s): 02/11/15 - 02/11/15 [facility] Outpatient Imaging - [place] [address] [place] [address]- [facility] [phone] Discharge Disposition: Home Physician Attending: Nik Nicolas [...]
--- OUTSIDE RECORDS SUMMARY | 2018-10-09 10:25 | XMS REPORT | Continuity of Care Document ---
Author Author [facility] Interface Address Unknown Phone Unavailable Problems Problem Status Onset Date Classification Date Reported Comments Source Z12.31 - ENCNTR SCREEN MAMMOGRAM FOR MA Active 08/27/2015 [facility] [place] 618.89 FEMALE PERINEAL LAXITY 592.0 BILA Active 02/16/2015 [facility] UNK Active 12/15/2014 [facility] PELVIC ORGAN PROLAPSE Active 12/15/2014 [facility] Coronary artery disease Active Problem 09/14/2017 [facility] [place] Heart disease Active Problem 09/14/2017 [facility] [place] Hypertension Active Problem 09/14/2017 [facility] [place] Hypothyroid Active Problem 09/14/2017 [facility] [place] Incontinence of urine Active Problem 09/14/2017 [facility] [place] GENITAL PROLAPSE NOS Active [facility] GENITAL PROLAPSE NEC Active [facility] Medications Medication Details Route Status Patient Instructions Ordering Provider Order Date Source ferrous sulfate 325 mg oral enteric coated tablet 325 mg=1 tab, PO, Daily, # 30 tab, 0 Refill(s) Active 01/21/2015 [facility] Metronidazole 375 MG Oral Capsule [Flagyl] 375 mg=1 cap, PO, BID, # 20 cap, 0 Refill(s) Active 01/21/2015 [facility] tramadol hydrochloride 50 MG Oral Tablet 50 mg=1 tab, PO, Q6H, Pain, # 40 tab, 0 Refill(s) Active 01/21/2015 [facility] Docusate Sodium 100 MG Oral Capsule [Colace] 100 mg=1 cap, PO, BID, Constipation, # 20 cap, 0 Refill(s) Active 01/21/2015 [facility] Furosemide 40 MG Oral Tablet [Lasix] 40 mg, 1 tab, Route: PO, Drug form: TAB, Daily, Dosing Weight 62.727, kg, Start date: 01/21/15 9:00:00, Duration: 30 day, Stop date: 02/19/15 9:00:00Notes: (Same as: Lasix) May cause GI upset. Give with food or milk. Inactive 01/21/2015 [facility] Magnesium Sulfate 2 gm, 50 mL, Route: IVPB, Drug form: INJ, ONCE, Dosing Weight 62.727, kg, Start date: 01/20/15 11:21:00, Duration: 2 hr, Stop date: 01/20/15 11:21:00 Inactive 01/20/2015 [facility] Saline Flush 0.9% 10 ml, Route: IVP, Drug Form: INJ, Dosing Weight 62.727, kg, Q12H, Start date: 01/20/15 9:00:00, Duration: 30 day, Stop date: 02/18/15 21:00:00Notes: (Same as: BD Posiflush) No Longer Active 01/20/2015 [facility] Lisinopril 5 mg, 1 tab, Route: PO, Drug form: TAB, Daily, Dosing Weight 62.727, kg, Start date: 01/20/15 9:00:00, Duration: 30 day, Stop date: 02/18/15 9:00:00Notes: (Same as: Prinivil, Zestril) No Longer Active 01/20/2015 [facility] aspirin 81 mg, 1 tab, Route: PO, Drug form: ECTAB, Daily, Dosing Weight 62.727, kg, Start date: 01/20/15 9:00:00, Duration: 30 day, Stop date: 02/18/15 9:00:00Notes: Do not crush or chew. (Same As: Ecotrin) No Longer Active 01/20/2015 [facility] Allopurinol 300 mg, 1 tab, Route: PO, Drug form: TAB, Daily, Dosing Weight 62.727, kg, Start date: 01/20/15 9:00:00, Duration: 30 day, Stop date: 02/18/15 9:00:00Notes: (Same as: Zyloprim) No Longer Active 01/20/2015 [facility] ferrous sulfate 325 mg, 1 tab, Route: PO, Drug form: ECTAB, Daily, Dosing Weight 62.727, kg, Start date: 01/20/15 9:00:00, Duration: 30 day, Stop date: 02/18/15 9:00:00Notes: Give with food. "Do Not Crush" No Longer Active 01/20/2015 [facility] Protonix 40 mg, 1 tab, Route: PO, Drug form: ECTAB, Before Breakfast, Dosing Weight 62.727, kg, Start date: 01/20/15 7:30:00, Duration: 30 day, Stop date: 02/18/15 7:30:00Notes: Tablet should not be chewed or crushed. (Same as: Protonix) No Longer Active 01/20/2015 [facility] Saline Flush 0.9% 10 ml, Route: IVP, Drug Form: INJ, Dosing Weight 62.727, kg, PRN, PRN Line Flush, Start date: 01/20/15 7:16:00, Duration: 30 day, Stop date: 02/19/15 8:15:00 Inactive 01/20/2015 [facility] Thyroxine 50 microgram, 1 tab, Route: PO, Drug form: TAB, Q630AM, Dosing Weight 62.727, kg, Start date: 01/20/15 6:30:00, Duration: 30 day, Stop date: 02/18/15 6:30:00Notes: Take 1 hour before or 2 hours after meal; Enteral feeds may interefere with the absorption of this medication.(Same as:Levothroid, Synthroid) No Longer Active 01/20/2015 [facility] Lipitor 20 mg, 2 tab, Route: PO, Drug form: TAB, Bedtime, Start date: 01/19/15 21:00:00, Duration: 30 day, Stop date: 02/17/15 21:00:00Notes: (Same As: Lipitor) No Longer Active 01/20/2015 [facility] Coreg 6.25 mg, 2 tab, Route: PO, Drug form: TAB, Q12H, Dosing Weight 62.727, kg, Start date: 01/19/15 21:00:00, Duration: 30 day, Stop date: 02/18/15 9:00:00Notes: Give with food. (Same As: Coreg) No Longer Active 01/20/2015 [facility] Potassium Chloride 10 MEQ Extended Release Tablet 10 mEq, 1 tab, Route: PO, Drug form: ERTAB, Q12H, Dosing Weight 62.727, kg, Start date: 01/19/15 21:00:00, Duration: 30 day, Stop date: 02/18/15 9:00:00Notes: (Same as: K-Dur 10) "Do Not Crush" With food and full glass of water No Longer Active 01/20/2015 [facility] Lovastatin 40 mg, Route: PO, Drug form: TAB, Bedtime, Dosing Weight 62.727, kg, Start date: 01/19/15 21:00:00, Duration: 30 day, Stop date: 02/17/15 21:00:00 Inactive 01/20/2015 [facility] Ferrlecit 125 mg, 10 mL, Route: IVPB, Drug form: INJ, ONCE, Dosing Weight 62.727, kg, Start date: 01/19/15 16:30:00, Stop date: 01/19/15 16:30:00Notes: (sodium ferric gluconate complex (elemental iron) 62.5 mg/5 ml INJ) "Limited stability. Use immediately after admixture" (Same as: Ferrlecit) Inactive 01/19/2015 [facility] Temazepam 30 mg, 2 cap, Route: PO, Drug form: CAP, Bedtime, Dosing Weight 62.727, kg, PRN Sleep, Start date: 01/19/15 16:28:00, Duration: 30 day, Stop date: 02/18/15 16:27:00Notes: (Same As: Restoril) No Longer Active 01/19/2015 [facility] Flagyl 500 mg, 100 mL, Route: IVPB, Drug form: INJ, ABXQ8H, Dosing Weight 62.727, kg, Start date: 01/19/15 16:00:00, Duration: 30 day, Stop date: 02/18/15 8:00:00Notes: (Same as: Flagyl) Avoid alcohol. No Longer Active 01/19/2015 [facility] Reglan 10 mg, 2 mL, Route: IVP, Drug form: INJ, Q6H, Dosing Weight 62.727, kg, PRN Nausea & Vomiting, Start date: 01/19/15 12:29:00, Duration: 30 day, Stop date: 02/18/15 12:28:00Notes: (Same as: Reglan) No Longer Active 01/19/2015 [facility] Metoprolol 2.5 mg, 2.5 mL, Route: IVP, Drug form: INJ, Q6H, Dosing Weight 62.727, kg, Start date: 01/19/15 12:00:00, Duration: 30 day, Stop date: 02/18/15 6:00:00Notes: (Same as: Lopressor) Push over 2 minutes Inactive 01/19/2015 [facility] Furosemide 40 mg, 4 mL, Route: IVP, Drug form: INJ, Daily, Dosing Weight 62.727, kg, Start date: 01/18/15 17:03:00, Duration: 30 day, Stop date: 02/17/15 9:00:00Notes: (Same as: Lasix) No Longer Active 01/18/2015 [facility] Insulin, Aspart, Human 2 unit, 0.02 mL, Route: SUB-Q, Drug form: SOLN, Sliding Scale, Dosing Weight 62.727, kg, PRN Blood Glucose Results, Start date: 01/18/15 14:02:00, Duration: 30 day, Stop date: 02/17/15 15:01:00Notes: Roll in palms of hands gently; Do not shake vigorously. (Same as: NovoLOG) "single patient use only" Stable for 28 days at room temperature. Expires in days from Date No Longer Active 01/18/2015 [facility] Dextrose 50% Syringe 25 gm, 50 mL, Route: IVP, Drug Form: INJ, Dosing Weight 62.727, kg, PRN, PRN Blood Glucose Results, Start date: 01/18/15 14:02:00, Duration: 30 day, Stop date: 02/17/15 15:01:00 No Longer Active 01/18/2015 [facility] Glucagon 1 mg, Route: IM, Drug form: PDR/INJ, PRN, Dosing Weight 62.727, kg, PRN Blood Glucose Results, Start date: 01/18/15 14:02:00, Duration: 30 day, Stop date: 02/17/15 15:01:00 No Longer Active 01/18/2015 [facility] Benadryl 12.5 mg, 0.25 mL, Route: IV, Drug form: INJ, Q6H, Dosing Weight 62.727, kg, PRN Insomnia, Start date: 01/17/15 21:54:00, Duration: 30 day, Stop date: 02/16/15 21:53:00Notes: (Same as: Benadryl) No Longer Active 01/18/2015 [facility] Hydralazine 10 mg, 0.5 mL, Route: IV, Drug form: INJ, TID, Dosing Weight 62.727, kg, PRN Hypertension, SBP > 170, Start date: 01/17/15 21:54:00, Duration: 30 day, Stop date: 02/16/15 21:53:00Notes: (Same as: Apr esoline) Push over 5 minutes No Longer Active 01/18/2015 [facility] Erythromycin 250 mg, Route: IVPB, ABXQ6H, Dosing Weight 62.727, kg, Priority: NOW, Start date: 01/17/15 18:47:00, Stop date: 01/18/15 20:00:00Notes: (Same as: erythromycin lactobionate) No Longer Active 01/18/2015 [facility] Morphine 0.5 mg, 0.25 mL, Route: IVP, Drug form: INJ, Q2H, Dosing Weight 62.727, kg, PRN Pain Score 7-10, Start date: 01/17/15 17:44:00, Duration: 30 day, Stop date: 02/16/15 17:43:00Notes: (Same as:MORPhine Sulfate) No Longer Active 01/17/2015 [facility] Ofirmev 1,000 mg, 100 mL, Route: IV, Drug form: INJ, Q6H, Dosing Weight 62.727, kg, PRN Pain Score 1-3, for > or=50 kg, Start date: 01/17/15 17:44:00, Duration: 30 day, Stop date: 02/16/15 17:43:00Notes: Infuse over 15 minutes Do not exceed 4gm/day of acetaminophen No Longer Active 01/17/2015 [facility] Pepto-bismol 87.3333 mg, 5 ml, Route: PO, Drug Form: SUSP, Dosing Weight 62.727, kg, QID, PRN Indigestion, Start date: 01/16/15 12:00:00, Duration: 30 day, Stop date: 02/15/15 11:59:00Notes: (Same As: Pepto Bismol and Kaopectate) No Longer Active 01/16/2015 [facility] Ondansetron 4 mg, 2 mL, Route: IVP, Drug form: INJ, Q4H, Dosing Weight 62.727, kg, PRN Nausea & Vomiting, Start date: 01/15/15 10:33:00, Duration: 30 day, Stop date: 02/14/15 10:32:00Notes: (Same as: Zofran) No Longer Active 01/15/2015 [facility] Phenergan 12.5 mg, 0.5 mL, Route: IVPB, Q4H, Dosing Weight 62.727, kg, PRN Nausea & Vomiting, Start date: 01/14/15 12:12:00, Duration: 30 day, Stop date: 02/13/15 12:11:00Notes: Do not give IV push. (Same as: Phenergan) No Longer Active 01/14/2015 [facility] tramadol hydrochloride 50 MG Oral Tablet 50 mg, 1 tab, Route: PO, Drug form: TAB, Q6H, Dosing Weight 62.727, kg, PRN Pain Score 1-3, Start date: 01/12/15 14:21:00, Stop date: 02/11/15 14:20:00Notes: Not to exceed 400mg/day. (Same As: Ultram) No Longer Active 01/12/2015 [facility] Nortriptyline 50 mg, 1 cap, Route: PO, Drug form: CAP, Daily, Dosing Weight 62.727, kg, Start date: 01/12/15 9:00:00, Stop date: 02/10/15 21:00:00Notes: (Same as:Pamelor, Aventyl) No Longer Active 01/12/2015 [facility] Lisinopril 5 mg, 1 tab, Route: PO, Drug form: TAB, Daily, Dosing Weight 62.727, kg, Start date: 01/12/15 9:00:00, Duration: 30 day, Stop date: 02/10/15 9:00:00Notes: (Same as: Prinivil, Zestril) No Longer Active 01/12/2015 [facility] Thyroxine 50 microgram, 1 tab, Route: PO, Drug form: TAB, Daily, Dosing Weight 62.727, kg, Start date: 01/12/15 9:00:00, Duration: 30 day, Stop date: 02/10/15 9:00:00Notes: Take 1 hour before or 2 hours after meal; Enteral feeds may interefere with the absorption of this medication.(Same as:Levothroid, Synthroid) No Longer Active 01/12/2015 [facility] Furosemide 40 MG Oral Tablet 40 mg, 1 tab, Route: PO, Drug form: TAB, Daily, Dosing Weight 62.727, kg, Start date: 01/12/15 9:00:00, Duration: 30 day, Stop date: 02/10/15 9:00:00Notes: (Same as: Lasix) May cause GI upset. Give with food or milk. No Longer Active 01/12/2015 [facility] Allopurinol 300 mg, 1 tab, Route: PO, Drug form: TAB, Daily, Dosing Weight 62.727, kg, Start date: 01/12/15 9:00:00, Duration: 30 day, Stop date: 02/10/15 9:00:00Notes: (Same as: Zyloprim) No Longer Active 01/12/2015 [facility] pantoprazole 40 mg, 1 tab, Route: PO, Drug form: ECTAB, Daily, Dosing Weight 62.727, kg, Start date: 01/12/15 9:00:00, Duration: 30 day, Stop date: 02/10/15 9:00:00Notes: Tablet should not be chewed or crushed. ( Same as: Protonix) No Longer Active 01/12/2015 [facility] atorvastatin 20 mg, 2 tab, Route: PO, Drug form: TAB, Bedtime, Start date: 01/11/15 21:00:00, Duration: 30 day, Stop date: 02/09/15 21:00:00Notes: (Same As: Lipitor) No Longer Active 01/12/2015 [facility] Famotidine 20 mg, 1 tab, Route: PO, Drug form: TAB, Q12H, Dosing Weight 62.727, kg, Start date: 01/11/15 21:00:00, Duration: 30 day, Stop date: 02/10/15 9:00:00Notes: (Same as: Pepcid) No Longer Active 01/12/2015 [facility] Ciprofloxacin 10 MG/ML Injectable Solution 400 mg, 200 mL, Route: IVPB, Drug form: INJ, Q12H, Dosing Weight 62.727, kg, Start date: 01/11/15 21:00:00, Duration: 1 doses or times, Stop date: 01/11/15 21:00:00Notes: Do not refrigerate Inactive 01/12/2015 [facility] Lovastatin 40 mg, Route: PO, Drug form: TAB, Bedtime, Dosing Weight 62.727, kg, Start date: 01/11/15 21:00:00, Duration: 30 day, Stop date: 02/09/15 21:00:00 Inactive 01/12/2015 [facility] carvedilol 6.25 mg, 2 tab, Route: PO, Drug form: TAB, Q12H, Dosing Weight 62.727, kg, Start date: 01/11/15 21:00:00, Duration: 30 day, Stop date: 02/10/15 9:00:00Notes: Give with food. (Same As: Coreg) No Longer Active 01/12/2015 [facility] Temazepam 30 mg, 2 cap, Route: PO, Drug form: CAP, Bedtime, Dosing Weight 62.727, kg, Start date: 01/11/15 21:00:00, Duration: 30 day, Stop date: 02/09/15 21:00:00Notes: (Same As: Restoril) No Longer Active 01/12/2015 [facility] Enoxaparin 40 mg, 0.4 mL, Route: SUB-Q, Drug form: INJ, [id number], Dosing Weight 62.727, kg, Start date: 01/11/15 15:00:00, Duration: 30 day, Stop date: 02/09/15 15:00:00Notes: (Same as: Lovenox) No Longer Active 01/11/2015 [facility] Nitroglycerin 0.4 MG Sublingual Tablet [Nitrostat] 0.4 mg, 1 tab, Route: SL, Drug form: TAB, Q5Min, Dosing Weight 62.727, kg, PRN as needed for chest pain, Start date: 01/11/15 13:10:00, Duration: 30 day, Stop date: 02/10/15 14:09:00Notes: (Same as:Nitroquick, Nitrostat) "Do Not Crush" Sublingual tablet No Longer Active 01/11/2015 [facility] Naloxone 0.04 mg, 0.1 mL, Route: IVP, Drug form: INJ, Q2MIN, Dosing Weight 62.727, kg, PRN Narcotic Reversal, Start date: 01/11/15 13:00:00, Duration: 30 day, Stop date: 02/10/15 13:59:00Notes: Same as Narcan No Longer Active 01/11/2015 [facility] Morphine 30 mg, 30 mL, Route: IV, Initial Loading Dose: 2 mg, BLAST FURNACE KEEPER HELPER Dose: 1 mg, BLAST FURNACE KEEPER HELPER Lockout: 10 minutes, Continuous Basal Rate: 0 mg, 4 Hour Limit (In MG): 30, Drug Form: INJ, Continuous, Start date: 01/11/15 13: 00:00, Duration: 30 day, Stop date: 02/10/15 13:5...Notes: Dose: Delay: Basal rate: 4hr limit: (Same as:Elsai-Jerebekah) No Longer Active 01/11/2015 [facility] Saline Flush 0.9% 10 ml, Route: IVP, Drug Form: INJ, Dosing Weight 62.727, kg, PRN, PRN Line Flush, Start date: 01/11/15 13:00:00, Duration: 30 day, Stop date: 02/10/15 13:59:00Notes: Same as: BD Posiflush Sterile No Longer Active 01/11/2015 [facility] D5W 1/2NS + KCL 20mEq/L 1000ml (Premix) 1,000 mL 1,000 mL, Rate: 75 ml/hr, Infuse over: 13.3 hr, Route: IV, Dosing Weight 62.727 kg, Total Volume: 1,000, Start date: 01/11/15 13:00:00, Stop date: 02/10/15 12:59:00Notes: PREMIX IV - Do Not Alter No Longer Active 01/11/2015 [facility] Ondansetron 4 mg, 2 mL, Route: IVP, Drug form: INJ, Q6H, Dosing Weight 62.727, kg, PRN Nausea & Vomiting, Start date: 01/11/15 13:00:00, Duration: 30 day, Stop date: 02/10/15 12:59:00Notes: (Same as: Zofran) No Longer Active 01/11/2015 [facility] oxybutynin 5 mg, 1 tab, Route: PO, Drug form: TAB, TID, Dosing Weight 62.727, kg, PRN Bladder Spasm, Start date: 01/11/15 13:00:00, Duration: 30 day, Stop date: 02/10/15 12:59:00Notes: Same as: Ditropan) No Longer Active 01/11/2015 [facility] 72 HR Scopolamine 0.0139 MG/HR Transdermal Patch 1 patch, Route: TOP, Drug Form: ERFILM, Dosing Weight 62.727, kg, ONCALL, Start date: 01/11/15 7:00:00, Duration: 30 day, Stop date: 02/10/15 7:59:00 Inactive 01/11/2015 [facility] Calcium Chloride 0.0014 MEQ/ML / Potassium Chloride 0.004 MEQ/ML / Sodium Chloride 0.103 MEQ/ML / Sodium Lactate 0.028 MEQ/ML Injectable Solution 1,000 mL, Rate: 25 ml/hr, Infuse over: 40 hr, Route: IV, Dosing Weight 62.727 kg, Total Volume: 1,000, Start date: 01/11/15 6:51:00, Duration: 30 day, Stop date: 02/10/15 6:50:00 Inactive 01/11/2015 [facility] Klor-Con 10 PO, BID, 0 Refill(s) Active 01/04/2015 [facility] carvedilol 6.25 mg oral tablet 6.25 mg=1 tab, PO, Q12H, # 60 tab, 0 Refill(s) Active 01/04/2015 [facility] temazepam 30 mg oral capsule 30 mg=1 cap, PO, Daily, Sleep, 0 Refill(s) Active 01/04/2015 [facility] allopurinol 300 mg oral tablet 300 mg=1 tab, PO, Daily, # 30 tab, 0 Refill(s) Active 01/04/2015 [facility] Nitroglycerin 0.4 MG Sublingual Tablet [Nitrostat] 0.4 mg=1 tab, SL, Q5Min, Chest Pain, # 100 tab, 0 Refill(s) Active 01/04/2015 [facility] Aspirin 81 MG Enteric Coated Tablet 81 mg=1 tab, PO, Daily, # 0 tab, 0 Refill(s) Active 01/04/2015 [facility] nortriptyline 50 mg oral capsule 50 mg=1 cap, PO, Daily, # 90 cap, 0 Refill(s) Active 01/04/2015 [facility] levothyroxine 50 mcg (0.05 mg) oral tablet 50 microgram=1 tab, PO, Daily, # 60 tab, 0 Refill(s) Active 01/04/2015 [facility] lovastatin 40 mg oral tablet 40 mg=1 tab, PO, Bedtime, # 30 tab, 0 Refill(s) Active 01/04/2015 [facility] Furosemide 40 MG Oral Tablet 40 mg=1 tab, PO, Daily, # 30 tab, 0 Refill(s) Active 01/04/2015 [facility] pantoprazole 40 mg oral enteric coated tablet 40 mg=1 tab, PO, Daily, # 30 tab, 0 Refill(s) Active 01/04/2015 [facility] lisinopril 5 mg oral tablet 5 mg=1 tab, PO, Daily, # 30 tab, 0 Refill(s) Active 01/04/2015 [facility] Allergies, Adverse Reactions, Alerts Substance Category Reaction Severity Reaction type Status Date Reported Comments Source codeine Assertion Drug allergy Active [facility] penicillins Assertion Drug allergy Active [facility] [place] Immunizations Immunization Date Given Site Status Last Updated Comments Source Results Order Name Results Value Reference Range Date Interpretation Comments Source Breast Mammo Scrn [place] incl CAD MA Breast Mammo Scrn [place] incl CAD MA BILATERAL DIGITAL SCREENING MAMMOGRAM WITH CAD: 09/11/2017 CLINICAL: Encounter For Screening Mammogram For Malignant Neoplasm Of Breast/Z12.31. Current study was evaluated with a Computer Aided Detection (CAD) system. COMPARISON:Comparison is made to exams dated: 09/21/2015 mammogram, 09/17/2014 mammogram, 09/08/2013 mammogram - [facility], 09/23/2012 mammogram, 09/19/2011 mammogram, and 09/13/2010 mammogram - [facility]. TECHNIQUE: Mammographic views were obtained using digital acquisition. Current study was also evaluated with a Computer Aided Detection (CAD) system. The tissue of both breasts is heterogeneously dense, which could obscure detection of small masses. FINDINGS: There are benign calcifications in both breasts. No significant masses, calcifications, or other findings are seen in either breast. There has been no significant interval change. IMPRESSION: BENIGN RECOMMENDATION:There is no mammographic evidence of malignancy. A 1 year screening mammogram is recommended.(09/12/2018) This exam was interpreted at [id number] for JAYLON Loza 15. Junior Arnold M.D. cm/penrad:09/11/2017 17:20:49 Well Logging Captain(s): RT Daniela(R)(M), [facility] letter sent: BI-RADS 1/2 Dense Mammogram BI-RADS: 2 Benign 09/11/2017 - - Read by: Preston Burroughs MD Dictated Date/time: 09/11/17 17:20 Electronically Signed by: Preston Burroughs MD 09/11/17 17:20 FINAL REPORT [facility] Bone Density DXA Dual Energy MA Bone Density DXA Dual Energy MA - Bone Density DXA Dual Energy MA BONE DENSITY EVALUATION: 02/20/2017 CLINICAL DATA: Post menopausal. RISK FACTORS: race. FINDINGS: Bone density evaluation was performed 02/20/2017 on the AP L1-L4 region of spine using a Hologic unit. The BMD average for the exam is 0.925 g/cm2. The T-score is -1.10 and the Z-score is 1.20. This matches the World Health Organization's criteria for osteopenia and places the patient at a medium risk for fracture. An additional bone density evaluation was performed 02/20/2017 on the left femur neck using a Hologic unit. The BMD average for the exam is 0.524 g/cm2. The T- score is -2.90 and the Z-score is -0.90. This matches the World Health Organization's criteria for osteoporosis and places the patient at a high risk for fracture. An additional bone density evaluation was performed 02/20/2017 on the left hip using a Hologic unit. The BMD average for the exam is 0.566 g/cm2. The T-score is -3.10 and the Z-score is -1.40. This matches the World Health Organization's criteria for osteoporosis and places the patient at a high risk for fracture. This scan was performed on a Hologic [employer] Wi DEXA scanner. IMPRESSION: OSTEOPOROSIS Patient is at high risk for fracture. Patient consult w/primary care provider is recommended. Professional services are provided by the [facility]. This exam was dictated and interpreted by [id number] for [facility]. Mery Stoll M.D. ak/penrad:02/21/2017 08:22:33 Well Logging Captain: Josefina BANUELOSR)([place]), [facility] 02/20/2017 - - Read by: Mery Stoll MD Dictated Date/time: 02/21/17 08:22 Electronically Signed by: Mery Stoll MD 02/21/17 08:22 FINAL REPORT ESTHER Shannan Digital Mammo Screening [place] MA Digital Mammo Screening [place] MA - DIGITAL MAMMO SCREENING [place] MA BILATERAL DIGITAL SCREENING MAMMOGRAM WITH CAD: 09/21/2015 CLINICAL: Routine. Current study was evaluated with a Computer Aided Detection (CAD) system. Comparison is made to exams dated: 09/17/2014 mammogram, 09/08/2013 mammogram - [facility], 09/23/2012 mammogram, 09/19/2011 mammogram, 09/13/2010 mammogram and 08/11/2009 mammogram - [facility]. The tissue of both breasts is heterogeneously dense, which could obscure detection of small masses. There are benign calcifications in both breasts. No significant masses, calcifications, or other findings are seen in either breast. There has been no significant interval change. IMPRESSION: BENIGN There is no mammographic evidence of malignancy. A 1 year screening mammogram is recommended. Junior Arnold M.D. cm/penrad:09/22/2015 11:24:21 Well Logging Captain: Jaelyn BANUELOSR)(M), [facility] This exam was dictated and interpreted by [id number] for [facility]. letter sent: Normal exam Mammogram BI-RADS: 2 Benign 09/21/2015 - - Read by: Preston Burroughs MD Dictated Date/time: 09/22/15 11:24 Electronically Signed by: Preston Burroughs MD 09/22/15 11:24 FINAL REPORT [facility] Bone Density-Dual Energy Absorptionmetry Bone Density-Dual Energy Absorptionmetry - Bone Density-Dual Energy Absorptionmetry BONE DENSITY EVALUATION: 04/20/2015 CLINICAL DATA: Post menopausal, clinical risk for osteoporosis and follow-up to previous study. RISK FACTORS: race. FINDINGS: Bone density evaluation was performed 04/20/2015 on the AP L1-L4 region of spine using [employer] Energy X-Ray Absorptiometry. The BMD average for the exam is 1.096 g/cm2. The T-score is -0.70 and the Z-score is 1.10. These values indicate 114.0% for age-matched controls. This matches the World Health Organization's criteria for normal bone density and places the patient within normal limits of fracture risk. An additional bone density evaluation was performed 04/20/2015 on the left femur neck using [employer] Energy X-Ray Absorptiometry. The BMD average for the exam is 0.540 g/cm2. The T-score is -3.60 and the Z-score is -1.70. These values indicate 69.0% for age-matched controls. This matches the World Health Organization's criteria for osteoporosis and places the patient at a high risk for fracture. An additional bone density evaluation was performed 04/20/2015 on the left hip using [employer] X-Ray Absorptiometry. The BMD average for the exam is 0.583 g/cm2. The T-score is -3.40 and the Z-score is -1.70. These values indicate 73.0% for age-matched controls. This matches the World Health Organization's criteria for osteoporosis and places the patient at a high risk for fracture. History of right hip surgery. IMPRESSION: OSTEOPOROSIS Patient is at high risk for fracture. Patient consult w/primary care provider is recommended. This exam was dictated and interpreted by [id number] for XIN Cagle. Eugene milan/monty:04/20/2015 14:50:26 [employer] Captain: Kerry Giordano 04/20/2015 - - Read by: Eugene Payton MD Dictated Date/time: 04/20/15 14:50 Electronically Signed by: Eugene Payton MD 04/20/15 14:50 FINAL REPORT [facility] Chest 2 views DX Chest 2 views DX EXAM: Two view chest. INDICATION: Chest congestion. COMPARISON: Chest x-ray January 18, 2015. FINDINGS: Cardiac silhouette: Unremarkable. Karin: Bronchial wall thickening, probably chronic. Lobar consolidation: None. Pleural effusion: None. Pneumothorax: None. Other: None. Bones: Sternotomy. Other: Right mediastinal surgical clips. IMPRESSION: 1. No acute cardiopulmonary process. 04/14/2015 - - Read by: Eugene Payton MD Dictated Date/time: 04/14/15 16:37 Electronically Signed by: Eugene Payton MD 04/14/15 16:39 FINAL REPORT DEBORAHAnant Shannan Ext Lower Venous Doppler Bilat US Ext Lower Venous Doppler Bilat US Bilateral Lower Extremity Venous Doppler HX: edema COMMENT: The deep venous system of the lower extremities was interrogated from inguinal ligament to the popliteal fossae utilizing high-resolution duplex sonography . The deep veins are readily visualized and easily compressible. There is normal spontaneous, phasic flow by spectral Doppler analysis. This constitutes a negative exam. CONCLUSION: Negative bilateral lower extremity venous Doppler. SL: 12 02/17/2015 - - Read by: Migue Renee MD Dictated Date/time: 02/17/15 18:29 Electronically Signed by: Migue Renee MD 02/17/15 18:30 FINAL REPORT [facility] Knee 1-2 Views unilateral DX Knee 1-2 Views unilateral DX Exam: Left knee x-ray, 2 views Reason for Exam: Left knee pain Comparison Exam: none Discussion: No fractures or dislocations are seen of the left knee. Mild joint space narrowing seen within the medial compartment. No intraosseous lesions. No radiopaque foreign bodies. Impression: 1. Mild joint space narrowing seen within the medial compartment. 02/11/2015 - - Read by: Diogo Byrd MD Dictated Date/time: 02/11/15 11:57 Electronically Signed by: Diogo Byrd MD 02/11/15 11:58 FINAL REPORT [facility] CHEM PANEL eGFR 65 mL/min/1.73m2 01/21/2015 1Result Comment: The eGFR is calculated using [...] from the National Kidney Disease Education Program (NKDEP) which additionally recommends that when the eGFR is used in patients with extremes of body mass index for purposes of drug dosing, the eGFR should be multiplied by the estimated BMI. [facility] CHEM PANEL CO2 25 meq/L 24 - 32 01/21/2015 [facility] CHEM PANEL Calcium Lvl 7.7 mg/dL 8.5 - 10.5 01/21/2015 [facility] CHEM PANEL Creatinine Lvl 0.9 mg/dL 0.5 - 1.4 01/21/2015 [facility] CHEM PANEL BUN 6 mg/dL 7 - 22 01/21/2015 [facility] CHEM PANEL Glucose Lvl 101 mg/dL 70 - 99 01/21/2015 4Interpretive Data: Adult reference range values reflect the clinical guidelines of the [place] [employer]. [facility] CHEM PANEL Chloride Lvl 107 meq/L 95 - 109 01/21/2015 [facility] CHEM PANEL Potassium Lvl 3.3 meq/L 3.5 - 5.1 01/21/2015 [facility] CHEM PANEL Sodium Lvl 140 meq/L 135 - 145 01/21/2015 [facility] CHEM PANEL AGAP 11.3 meq/L 10.0 - 20.0 01/21/2015 [facility] CHEM PANEL Phosphorus 3.4 mg/dL 2.5 - 4.5 01/21/2015 [facility] CHEM PANEL Magnesium Lvl 2.0 mg/dL 1.8 - 2.4 01/21/2015 [facility] HEMATOLOGY MCV 74.3 fL 80.0 - 98.0 01/21/2015 [facility] HEMATOLOGY Hct 45.0 % 36.0 - 48.0 01/21/2015 [facility] HEMATOLOGY RDW 22.1 % 11.5 - 14.5 01/21/[address] [facility] MCHC 30.8 g/dL 32.0 - 36.0 01/21/[address] [facility] MCH 22.8 pg 27.0 - 31.0 01/21/2015 [facility] HEMATOLOGY Platelet 599 K/CMM 133 - 450 01/21/[address] [facility] MPV 7.8 fL 7.4 - 10.4 01/21/[address] [facility] WBC 16.9 K/CMM 3.7 - 10.4 01/21/[address] [facility] RBC 6.06 M/CMM 4.20 - 5.40 01/21/[address] [facility] Hgb 13.8 g/dL 12.0 - 16.0 01/21/[address] [facility] Eosinophils # 0.5 K/CMM 0.0 - 0.5 01/21/[address] [facility] Monocytes # 1.3 K/CMM 0.0 - 0.8 01/21/[address] [facility] Monocytes 7.5 % 2.0 - 12.0 01/21/[address] [facility] Lymphocytes 12.4 % 20.0 - 40.0 01/21/[address] [facility] Lymphocytes # 2.1 K/CMM 1.0 - 5.5 01/21/[address] [facility] Segs-Bands # 12.8 K/CMM 1.5 - 8.1 01/21/[address] [facility] Basophils 1.1 % 0.0 - 1.0 01/21/[address] [facility] Eosinophils 3.1 % 0.0 - 4.0 01/21/[address] [facility] Basophils # 0.2 K/CMM 0.0 - 0.2 01/21/[address] [facility] Microcyte 1+ *ABN* (01/21/15 5:36 AM) None Seen 01/21/[address] [facility] RBC Morph See Note (01/21/15 5:36 AM) 01/21/[address] [facility] Segs 75.9 % 45.0 - 75.0 01/21/[address] [facility] Plt Morph Normal (01/21/15 5:36 AM) 01/21/2015 [facility] CHEM PANEL Magnesium Lvl 1.6 mg/dL 1.8 - 2.4 01/20/2015 [facility] CHEM PANEL Phosphorus 2.7 mg/dL 2.5 - 4.5 01/20/2015 [facility] CHEM PANEL Amylase Lvl 43 unit/L 25 - 115 01/20/2015 [facility] CHEM PANEL Lipase Lvl 327 unit/L 73 - 393 01/20/[address] [facility] Basophils # 0.2 K/CMM 0.0 - 0.2 01/20/[address] [facility] Microcyte 1+ *ABN* (01/20/15 7:11 AM) None Seen 01/20/[address] [facility] Hypochrom 1+ (01/20/15 7:11 AM) None Seen 01/20/[address] [facility] Plt Morph Normal (01/20/15 7:11 AM) 01/20/[address] [facility] Monocytes # 1.3 K/CMM 0.0 - 0.8 01/20/[address] [facility] Lymphocytes # 1.8 K/CMM 1.0 - 5.5 01/20/[address] [facility] Eosinophils # 0.5 K/CMM 0.0 - 0.5 01/20/[address] [facility] Monocytes 7.8 % 2.0 - 12.0 01/20/[address] [facility] Lymphocytes 11.1 % 20.0 - 40.0 01/20/[address] [facility] Segs 76.6 % 45.0 - 75.0 01/20/[address] [facility] Basophils 1.2 % 0.0 - 1.0 01/20/[address] [facility] Eosinophils 3.3 % 0.0 - 4.0 01/20/[address] [facility] Segs-Bands # 12.7 K/CMM 1.5 - 8.1 01/20/[address] [facility] MCH 22.6 pg 27.0 - 31.0 01/20/[address] [facility] MCV 73.5 fL 80.0 - 98.0 01/20/[address] [facility] MCHC 30.7 g/dL 32.0 - 36.0 01/20/[address] [facility] RBC 5.88 M/CMM 4.20 - 5.40 01/20/[address] [facility] Hct 43.2 % 36.0 - 48.0 01/20/[address] [facility] Hgb 13.3 g/dL 12.0 - 16.0 01/20/[address] [facility] Platelet 607 K/CMM 133 - 450 01/20/[address] [facility] RDW 21.3 % 11.5 - 14.5 01/20/[address] [facility] MPV 8.5 fL 7.4 - 10.4 01/20/[address] [facility] WBC 16.6 K/CMM 3.7 - 10.4 01/20/2015 [facility] ANEMIA STUDY Folate Lvl 10.1 ng/mL >=3.0 ng/mL 01/19/2015 [facility] ANEMIA STUDY Vitamin B12 Lvl 983 pg/mL 254 - 1320 01/19/2015 [facility] ANEMIA STUDY UIBC 204 ug/dl 110 - 370 01/19/2015 [facility] ANEMIA STUDY % Satur Fe 9 % 12 - 57 01/19/2015 [facility] ANEMIA STUDY TIBC 223 ug/dl 228 - 428 01/19/2015 [facility] ANEMIA STUDY Iron 19 ug/dl 30 - 160 01/19/2015 [facility] ANEMIA STUDY Ferritin Lvl 46 ng/mL 5 - 204 01/19/2015 [facility] CHEM PANEL Phosphorus 3.1 mg/dL 2.5 - 4.5 01/19/2015 [facility] CHEM PANEL Magnesium Lvl 1.9 mg/dL 1.8 - 2.4 01/19/2015 [facility] ELECTROLYTES AGAP 11.2 meq/L 10.0 - 20.0 01/19/2015 [facility] ELECTROLYTES Globulin 2.7 g/dL 2.0 - 4.0 01/19/2015 [facility] ELECTROLYTES A/G Ratio 0.8 0.7 - 1.6 01/19/2015 [facility] ELECTROLYTES B/C Ratio 10 6 - 25 01/19/2015 [facility] eGFR 74 mL/min/1.73m2 01/19/2015 2Result Comment: The eGFR is calculated using [...] from the National Kidney Disease Education Program (NKDEP) which additionally recommends that when the eGFR is used in patients with extremes of body mass index for purposes of drug dosing, the eGFR should be multiplied by the estimated BMI. [facility] ELECTROLYTES AST 12 unit/L 0 - 37 01/19/2015 [facility] ELECTROLYTES ALT 12 unit/L 0 - 65 01/19/2015 [facility] ELECTROLYTES Total Protein 4.8 g/dL 6.4 - 8.4 01/19/2015 [facility] ELECTROLYTES Alk Phos 126 unit/L 39 - 136 01/19/2015 [facility] ELECTROLYTES Albumin Lvl 2.1 g/dL 3.5 - 5.0 01/19/2015 [facility] ELECTROLYTES Bili Total 0.7 mg/dL 0.2 - 1.3 01/19/2015 [facility] ELECTROLYTES CO2 28 meq/L 24 - 32 01/19/2015 [facility] ELECTROLYTES Creatinine Lvl 0.8 mg/dL 0.5 - 1.4 01/19/2015 [facility] ELECTROLYTES BUN 8 mg/dL 7 - 22 01/19/2015 [facility] ELECTROLYTES Glucose Lvl 99 mg/dL 70 - 99 01/19/2015 5Interpretive Data: Adult reference range values reflect the clinical guidelines of the [place] [employer]. [facility] ELECTROLYTES Chloride Lvl 101 meq/L 95 - 109 01/19/2015 [facility] ELECTROLYTES Calcium Lvl 8.0 mg/dL 8.5 - 10.5 01/19/2015 [facility] ELECTROLYTES Sodium Lvl 136 meq/L 135 - 145 01/19/2015 [facility] ELECTROLYTES Potassium Lvl 4.2 meq/L 3.5 - 5.1 01/19/2015 [facility] HEMATOLOGY Monocytes # 1.5 K/CMM 0.0 - 0.8 01/19/2015 [facility] HEMATOLOGY Eosinophils # 0.6 K/CMM 0.0 - 0.5 01/19/2015 [facility] HEMATOLOGY Basophils # 0.1 K/CMM 0.0 - 0.2 01/19/2015 [facility] HEMATOLOGY Microcyte 1+ *ABN* (01/19/15 7:30 AM) None Seen 01/19/2015 [facility] HEMATOLOGY Lymphocytes # 2.1 K/CMM 1.0 - 5.5 01/19/2015 [facility] HEMATOLOGY Basophils 0.7 % 0.0 - 1.0 01/19/2015 [facility] HEMATOLOGY Segs-Bands # 17.3 K/CMM 1.5 - 8.1 01/19/2015 [facility] HEMATOLOGY Segs 80.2 % 45.0 - 75.0 01/19/2015 [facility] HEMATOLOGY Lymphocytes 9.5 % 20.0 - 40.0 01/19/2015 [facility] HEMATOLOGY Monocytes 6.9 % 2.0 - 12.0 01/19/2015 [facility] HEMATOLOGY Eosinophils 2.7 % 0.0 - 4.0 01/19/[address] [facility] Platelet 654 K/CMM 133 - 450 01/19/[address] [facility] RDW 21.5 % 11.5 - 14.5 01/19/[address] [facility] MCH 22.7 pg 27.0 - 31.0 01/19/[address] [facility] MPV 8.2 fL 7.4 - 10.4 01/19/[address] [facility] RBC 6.25 M/CMM 4.20 - 5.40 01/19/[address] [facility] Hgb 14.2 g/dL 12.0 - 16.0 01/19/[address] [facility] MCHC 31.3 g/dL 32.0 - 36.0 01/19/[address] [facility] Hct 45.4 % 36.0 - 48.0 01/19/[address] [facility] MCV 72.6 fL 80.0 - 98.0 01/19/[address] [facility] WBC 21.6 K/CMM 3.7 - 10.4 01/19/2015 [facility] Abdomen AP DX Abdomen AP DX ABDOMINAL RADIOGRAPH SINGLE VIEW INDICATION: Abdominal distention COMPARISON: ABDOMINAL RADIOGRAPH 01/16/2015 IMPRESSION: There are postoperative changes of the abdomen. The distal end of a nasogastric tube is visible in the right upper quadrant of the abdomen, presumably within the gastric antrum or proximal duodenum. There is a nonspecific, nonobstructive bowel gas pattern. Oral contrast is noted within the large bowel. There is no evidence of pneumoperitoneum. SL: 16 01/19/2015 - - Read by: Shahriar Cochran MD Dictated Date/time: 01/19/15 10:47 Electronically Signed by: Shahriar Cochran MD 01/19/15 10:49 FINAL REPORT [facility] URINE AND STOOL UA Urobilinogen <=1.0 mg/dL 0.1 - 1.0 01/19/2015 [facility] URINE AND STOOL UA Color Ltyellow 01/19/2015 [facility] URINE AND STOOL UA Bacteria Occasional /HPF None Seen /HPF 01/19/2015 [facility] URINE AND STOOL UA Blood Negative (01/18/15 6:35 PM) Negative 01/19/2015 [facility] URINE AND STOOL UA Bili Negative *NA* (01/18/15 6:35 PM) Negative 01/19/2015 [facility] URINE AND STOOL UA Nitrite Negative (01/18/15 6:35 PM) Negative 01/19/2015 [facility] URINE AND STOOL UA Spec Grav 1.005 <=1.030 01/19/2015 [facility] URINE AND STOOL UA pH 6.0 5.0 - 8.0 01/19/2015 [facility] URINE AND STOOL UA Turbidity Clear (01/18/15 6:35 PM) Clear 01/19/2015 [facility] URINE AND STOOL UA Leuk Est Large *ABN* (01/18/15 6:35 PM) Negative 01/19/2015 [facility] URINE AND STOOL UA Glucose Negative mg/dL Negative mg/dL 01/19/2015 [facility] URINE AND STOOL UA Protein Negative mg/dL Negative mg/dL 01/19/2015 [facility] URINE AND STOOL UA Ketones Negative mg/dL Negative mg/dL 01/19/2015 [facility] URINE AND STOOL UA RBC 3 /HPF 0 - 2 01/19/2015 [facility] URINE AND STOOL UA WBC 20 /HPF 0 - 5 01/19/2015 [facility] URINE AND STOOL UA Sq Epi Few /LPF Few /LPF 01/19/2015 [facility] CHEM PANEL Procalcitonin Lvl 0.25 ng/mL 0.00 - 0.10 01/18/2015 [facility] CHEM PANEL Glucose Lvl 122 mg/dL 70 - 99 01/18/2015 6Interpretive Data: Adult reference range values reflect the clinical guidelines of the [place] [employer]. [facility] CHEM PANEL BUN 9 mg/dL 7 - 22 01/18/2015 [facility] CHEM PANEL eGFR 57 mL/min/1.73m2 01/18/2015 3Result Comment: The eGFR is calculated using [...] from the National Kidney Disease Education Program (NKDEP) which additionally recommends that when the eGFR is used in patients with extremes of body mass index for purposes of drug dosing, the eGFR should be multiplied by the estimated BMI. [facility] CHEM PANEL Calcium Lvl 8.1 mg/dL 8.5 - 10.5 01/18/2015 [facility] CHEM PANEL CO2 29 meq/L 24 - 32 01/18/2015 [facility] CHEM PANEL Chloride Lvl 98 meq/L 95 - 109 01/18/2015 [facility] CHEM PANEL Potassium Lvl 4.4 meq/L 3.5 - 5.1 01/18/2015 [facility] CHEM PANEL Sodium Lvl 134 meq/L 135 - 145 01/18/2015 [facility] CHEM PANEL Creatinine Lvl 1.0 mg/dL 0.5 - 1.4 01/18/2015 [facility] CHEM PANEL AGAP 11.4 meq/L 10.0 - 20.0 01/18/2015 [facility] THYROID PANEL FTI 4.0 01/18/2015 [facility] THYROID [facility] TSH 2.520 uIU/mL 0.360 - 3.740 01/18/2015 [facility] THYROID PANEL T3 Uptake 39 % 31 - 39 01/18/2015 [facility] THYROID [facility] T4 10.3 ug/dl 4.7 - 13.3 01/18/2015 [facility] Chest 1view DX Chest 1view DX Chest, one view. HISTORY: PICC line placement. FINDINGS: Since the prior exam dated 01/17/2015, a right PICC line has been placed which terminates atriocaval junction. No pneumothorax. Lungs are underinflated but clear. No pleural effusion. Stable mediastinum. Nasogastric tube remains in place. SL: 13 01/18/2015 - - Read by: Tristen Yousif MD Dictated Date/time: 01/18/15 16:04 Electronically Signed by: Tristen Yousif MD 01/18/15 16:05 FINAL REPORT [facility] Abdomen/Pelvis wo IV contrast CT Abdomen/Pelvis wo IV contrast CT EXAM: CT ABDOMEN AND PELVIS WITHOUT IV CONTRAST CLINICAL INDICATION: Abdominal distension TECHNIQUE: Volumetric acquisition of abdomen from the level of the domes of the diaphragm through the symphysis pubis. Axial, sagittal and coronal images were interpreted. COMPARISON: CT abdomen pelvis 01/13/2015.. FINDINGS: Evaluation is limited by breathing motion artifact. Bilateral centrilobular emphysema is seen. Elevation of the right hemidiaphragm is again seen. There is a trace layering right pleural effusion. Right basilar subsegmental atelectasis is identified. Coronary calcifications and coronary bypass graft changes are noted. A nasogastric tube tip is located in the distal stomach body. Fluid is present in the esophagus. Esophageal wall prominence is seen. The solid organs are not fully evaluated without IV contrast. Left liver hypodense cyst is unchanged compared to prior examination. There is a probable calcified is splenic granuloma. Bilateral adrenal glands are within normal limits. Pancreatic tail atrophy is seen. The gallbladder is surgically absent. Dilatation of the common bile duct is likely related to cholecystectomy. Right renal inferior pole 4 x 2 mm nonobstructing calculus it is seen. There is no hydroureteronephrosis. Lainez catheter is present within the urinary bladder. The anterior aspect of the urinary bladder appears to be attached to the anterior peritoneal space. A significant amount of air is seen in the urinary bladder. Evaluation of the urinary bladder wall thickening is limited due to lack of intravenous contrast. Contrast is present in the colon. Descending colon and sigmoid colon wall prominence is noted. The colon is nondistended. Interval worsening of small bowel dilatation is seen. Distal ileum is collapsed. Distal ileum wall thickening is now seen. Interval decrease in presacral and right pelvic sidewall air is seen. Presacral edema is again seen. Midline incision is seen. Surgical mesh is noted within the anterior abdominal wall incision. Mesh material is also seen along the right pelvic sidewall extending inferiorly to the vaginal wall. There is a linear 8.6 x 1.9 x 12.8 cm air-containing collection in the anterior abdominal wall just deep to the midline incision. Small fat containing left paramedian hernia is seen in the anterior upper abdomen. A subxiphoid fat containing ventral hernia is again seen without inflammation and a wide neck. Mildly prominent periportal lymph nodes are nonspecific. Moderate calcifications are present in the infrarenal abdominal aorta and bilateral common iliac arteries. No intraperitoneal free fluid is seen. No intraperitoneal free air is identified. Right proximal femur fixation hardware is partially seen. Midline sternotomy wires are also partially seen. A subacute appearing fracture of the right posterior lateral ninth rib is seen. Healed fractures of the left superior and inferior pubic rami are seen. fracture of the right posterior lateral ninth rib is again seen. IMPRESSION: 1. Interval worsening of proximal and mid small bowel dilatation concerning for partial small bowel obstruction versus ileus. 2. Collapsed distal ileum with wall thickening concerning for ileitis. 3. Descending colon and rectal wall thickening may be related to nondistention or colitis. 4. Interval decrease in presacral and right pelvic sidewall air, which is likely postsurgical in nature. 5. Interval decompression of urinary bladder. There is a significant amount of air in the bladder, which may related to Lainez catheter placement. The bladder wall appears to be attached to the anterior abdominal wall. If there is concern for bladder injury, a cystogram can be done for evaluation. 6. No significant interval change in thin linear air-containing collection in the anterior abdominal wall 7. 4 mm nonobstructing right renal inferior pole calculus. No hydroureteronephrosis. 8. Otherwise, no new findings compared to prior examination. SL: 14 01/17/2015 - - Read by: Ana Robison MD Dictated Date/time: 01/18/15 08:19 Electronically Signed by: Ana Robison MD 01/18/15 09:26 FINAL REPORT [facility] HEMATOLOGY Giant Plt Moderate *ABN* (01/17/15 12:22 PM) None Seen 01/17/[address] [facility] Large Plt Moderate *ABN* (01/17/15 12:22 PM) None Seen 01/17/2015 [facility] Chest 2 views DX Chest 2 views DX PA and LATERAL CHEST (2 views) HISTORY: Pneumonia Comparison is made to 01/12/2015. Studies of 08/17/2014 and 06/09/2010, a chest CT scan of 05/19/2011, an CT images through the lung bases from abdominal CT scan of 01/13/2015 were reviewed. FINDINGS: 1. Minimal change from there is moderate elevation the right hemidiaphragm which is unchanged the prior study. There is underlying right basilar atelectasis. There is no significant pleural effusion. It appears there has been elevation the right hemidiaphragm similar to this dating back to 2010. 2. There is mild left basilar atelectasis. The left lung is otherwise clear pretty right upper lobe is clear. There are no new or acute findings. 3. The heart is normal in size. There is no evidence of failure. 4. Poststernotomy changes. 5. There is now a nasogastric tube. The nasogastric tube extends into the stomach. Coding: Chest 2 views CPT Code: 41266 SL: 14 Shashi Carlson M.D. 01/17/2015 - - Read by: Shashi Carlson MD Dictated Date/time: 01/17/15 18:16 Electronically Signed by: Shashi Carlson MD 01/17/15 18:19 FINAL REPORT [facility] Abdomen 2 views DX Abdomen 2 views DX ABDOMEN 2 VIEWS: COMPARISON: CT abdomen pelvis 12/08/2014 FINDINGS: Interval increase in small bowel dilation. There is air noted in the colon. Gastric distention with prominent air-fluid level. Surgical carmen project near midline of the lower abdomen and pelvis regions. Findings likely related to generalized ileus. Clinical and imaging follow-up recommended. Atelectasis versus minimal fluid, right lung base. No free air is noted underneath the hemidiaphragms. SL:13 01/16/2015 - - Read by: Amilcar Steel MD Dictated Date/time: 01/16/15 13:13 Electronically Signed by: Amilcar Steel MD 01/16/15 13:16 FINAL REPORT [facility] URINE AND STOOL UA Urobilinogen <=1.0 mg/dL 0.1 - 1.0 01/13/2015 [facility] URINE AND STOOL UA Color Ltyellow 01/13/2015 [facility] URINE AND STOOL UA RBC 2 /HPF 0 - 2 01/13/2015 [facility] URINE AND STOOL UA Sq Epi Occasional /LPF Few /LPF 01/13/2015 [facility] URINE AND STOOL UA Hyal Cast 1 /LPF 0 - 2 01/13/2015 [facility] URINE AND STOOL UA Leuk Est Trace *ABN* (01/13/15 5:57 PM) Negative 01/13/2015 [facility] URINE AND STOOL UA WBC 8 /HPF 0 - 5 01/13/2015 [facility] URINE AND STOOL UA Ketones Negative mg/dL Negative mg/dL 01/13/2015 [facility] URINE AND STOOL UA Nitrite Negative (01/13/15 5:57 PM) Negative 01/13/2015 [facility] URINE AND STOOL UA Bili Negative *NA* (01/13/15 5:57 PM) Negative 01/13/2015 [facility] URINE AND STOOL UA Blood Small *ABN* (01/13/15 5:57 PM) Negative 01/13/2015 [facility] URINE AND STOOL UA pH 5.0 5.0 - 8.0 01/13/2015 [facility] URINE AND STOOL UA Spec Grav 1.014 <=1.030 01/13/2015 [facility] URINE AND STOOL UA Turbidity Clear (01/13/15 5:57 PM) Clear 01/13/2015 [facility] URINE AND STOOL UA Protein Negative mg/dL Negative mg/dL 01/13/2015 [facility] URINE AND STOOL UA Glucose Negative mg/dL Negative mg/dL 01/13/2015 [facility] Abdomen/Pelvis w IV contrast CT Abdomen/Pelvis w IV contrast CT PROCEDURE: Abdomen/Pelvis w contrast CT CLINICAL INFORMATION Abdominal fullness COMPARISON: Chest CT 05/19/2011. ABDOMEN with IV contrast: Bilateral lower lobe atelectasis. Small degree of pneumoperitoneum. Ventral abdominal pannus soft tissue air and fluid. Fluid component measures 8.3 cm transverse x 1.3 cm AP x 7.8 cm CC. Normal evaluation of the spleen, adrenal glands, pancreas and kidneys. Left lobe hepatic cyst, HU 0.35, 3.3 cm x 2.4 cm is decreased in size when compared to 05/19/2011 where it measured 3.9 cm x 2.7 cm. Gastric distention. Feeding tube tip noted in the stomach. PELVIS with IV contrast: Mild small bowel dilation. Perirectal sigmoid inflammatory change, presacral edema and air. Focal dilation of the right colon and transverse colon with a transition zone at the proximal descending colonic level. Distended bladder. Right hip internal fixation. IMPRESSION: 1. Pneumoperitoneum likely related to recent surgery. 2. Presacral inflammation, air likely related to recent surgery. The possibility of rectosigmoid colitis is considered less likely but not excluded. 3. Gastric distention. Small bowel ileus, probable right colonic ileus. Transition zone at the proximal descending colon. Correlation with a recent colonoscopy is recommended to help exclude a colonic process when the patient is able. 4. Bibasilar atelectasis. 5. Mild cardiomegaly. 6. Postoperative air and fluid in the incisional site. 7. Right hip internal fixation. 8. Distended bladder. 9. Decreased size to a left lobe hepatic cyst. These findings are communicated to the patient's nurse Opal at 11:39 a.m. SL: 13 01/13/2015 - - Read by: Aaron Earl MD Dictated Date/time: 01/13/15 11:26 Electronically Signed by: Aaron Earl MD 01/13/15 11:45 FINAL REPORT [facility] Chest 2 views DX Chest 2 views DX PROCEDURE: Chest 2 views CLINICAL INFORMATION Shallow breathing COMPARISON: 01/2013. 01/2012. Feeding tube tip below the diaphragm. Post median sternotomy. Elevated right hemidiaphragm with right lower lobe atelectasis. Surgical carmen in the right paratracheal region. Intact osseous structures, no pneumothorax. Lateral exam limited by positioning. SL: 13 01/12/2015 - - Read by: Aaron Earl MD Dictated Date/time: 01/13/15 08:23 Electronically Signed by: Aaron Earl MD 01/13/15 08:26 FINAL RE[address] [facility] Hypochrom 1+ (01/11/15 7:50 AM) None Seen 01/11/[address] [facility] Plt Morph Normal (01/11/15 7:50 AM) 01/11/[address] [facility] PTT 34.9 s 22.9 - 35.8 01/04/2015 8Interpretive Data: Heparin Therapeutic Range: 57 - [address] [facility] PT 14.7 s 12.0 - 14.7 01/04/[address] [facility] INR 1.14 0.85 - 1.17 01/04/2015 7Interpretive Data: RECOMMENDED RANGES FOR PROTIME INR: 2.0-3.0 for most medical and surgical thromboembolic states. 2.5-3.5 for artificial heart valves and recurrent embolism. INR SHOULD BE USED ONLY FOR PATIENTS ON STABLE ANTICOAGULANT THERAPY. [facility] HEMATOLOGY Hypochrom 1+ (01/04/15 11:31 AM) None Seen 01/04/[address] [facility] Anisocyte 1+ *ABN* (01/04/15 11:31 AM) None Seen 01/04/2015 [facility] URINE AND STOOL UA Ketones Negative mg/dL Negative mg/dL 01/04/2015 [facility] URINE AND STOOL UA Protein Negative mg/dL Negative mg/dL 01/04/2015 [facility] URINE AND STOOL UA Glucose Negative mg/dL Negative mg/dL 01/04/2015 [facility] URINE AND STOOL UA pH 6.0 5.0 - 8.0 01/04/2015 [facility] URINE AND STOOL UA Spec Grav 1.005 <=1.030 01/04/2015 [facility] URINE AND STOOL UA Turbidity Marked *ABN* (01/04/15 11:31 AM) Clear 01/04/2015 [facility] URINE AND STOOL UA Color Yellow *NA* (01/04/15 11:31 AM) Yellow 01/04/2015 [facility] URINE AND STOOL UA Sq Epi None Seen 01/04/2015 [facility] URINE AND STOOL UA RBC 21 /HPF 0 - 2 01/04/2015 [facility] URINE AND STOOL UA Bacteria Few /HPF None Seen /HPF 01/04/2015 [facility] URINE AND STOOL UA Urobilinogen <=1.0 mg/dL 0.1 - 1.0 01/04/2015 [facility] URINE AND STOOL UA WBC null 0 - 5 01/04/2015 [facility] URINE AND STOOL UA Leuk Est Large *ABN* (01/04/15 11:31 AM) Negative 01/04/2015 [facility] URINE AND STOOL UA Nitrite Negative (01/04/15 11:31 AM) Negative 01/04/2015 [facility] URINE AND STOOL UA Blood Negative (01/04/15 11:31 AM) Negative 01/04/2015 [facility] URINE AND STOOL UA Bili Negative *NA* (01/04/15 11:31 AM) Negative 01/04/2015 [facility] Digital Mammo DX [facility] Digital Mammo DX [facility] - DIGITAL MAMMO DX [facility] BILATERAL DIGITAL DIAGNOSTIC MAMMOGRAM WITH CAD: 09/17/2014 CLINICAL: Mammographic Abnormality. Current study was evaluated with a Computer Aided Detection (CAD) system. Comparison is made to exams dated: 09/08/2013 mammogram - [facility], 09/23/2012 mammogram, 09/19/2011 mammogram and 09/13/2010 mammogram - [facility]. The tissue of both breasts is heterogeneously dense, which could obscure detection of small masses. There are scattered benign calcifications in both breasts. The area of prior benign biopsy in the far posterior inner right breast cannot be viewed mammographically due to its extreme medial and posterior location. No other significant masses or calcifications are seen in either breast. IMPRESSION: BENIGN There are scattered benign calcifications in both breasts. The area of prior benign biopsy in the far posterior inner right breast cannot be viewed mammographically due to its extreme medial and posterior location. There is no mammographic evidence of malignancy. A screening mammogram in one year is recommended. Sanju Khan cl/:09/17/2014 09:08:27 Well Logging Captain: Shilpa LEWIS(R)(M), [facility] This exam was dictated and interpreted by [id number] for XIN Cagle. letter sent: Bilateral Benign Mammogram BI-RADS: 2 Benign 09/17/2014 - - Read by: Sanju Khan MD Dictated Date/time: 09/17/14 09:08 Electronically Signed by: Sanju Khan MD 09/17/14 09:08 FINAL REPORT [facility] Chest 2 views Chest 2 views CHEST RADIOGRAPHY CLINICAL HISTORY: Cough. COMPARISON IMAGIN01/21/2013 radiography. FINDINGS: Two views of the chest were acquired and submitted for evaluation. No pleural fluid is identified. The cardiac silhouette is stable status post median sternotomy. There is no significant pulmonary consolidation or nodularity. Bones appear demineralized. IMPRESSION: No acute abnormality. 08/17/2014 - - Read by: Jeffrey Cohen MD Dictated Date/time: 08/17/14 12:42 Electronically Signed by: Jeffrey Cohen MD 08/17/14 12:43 FINAL REPORT [facility] Breast US Breast US - DIGITAL MAMMO DX [facility] [place] - BREAST US/R BILATERAL DIGITAL DIAGNOSTIC MAMMOGRAM AND TARGETED RIGHT ULTRASOUND: 09/08/2013 CLINICAL: Palpable Abnormality of 2 weeks duration, prior sternotomy 2010, positive family history. Comparison is made to exams dated: 09/23/2012 mammogram, 09/19/2011 mammogram, 09/13/2010 mammogram and 08/11/2009 mammogram - [facility]. The tissue of both breasts is heterogeneously dense. This may lower the sensitivity of mammography. This area was not mammographically evaluated due to its extreme medial and posterior location. Targeted ultrasound of the right breast as directed by the patient at 3:00 10cm from the nipple demonstrates a 20 x 12 x 28mm heterogeneous mass corresponding to palpable lump. An adjacent smaller similar appearing 6 x 4 x 6 mm mass noted at 3:00 11cm from the nipple. No sonographically abnormal appearing lymph nodes identified in the right axilla. No significant masses, calcifications, or other findings are seen in either breast on the mammogram or targeted ultrasound. IMPRESSION: SUSPICIOUS OF MALIGNANCY, TARGETED ULTRASOUND SUSPICIOUS OF MALIGNANCY Palpable lump in right breast 3:00 10cm from the nipple corresponds to a 28mm heterogeneous mass with adjacent similar appearing 6 mm mass noted at 3:00 11cm from the nipple. Recommend ultrasound guided core biopsy of 28mm mass. Management of the smaller lesion may be dependent on pathology of biopsied area. SUMMARY: I notified the patient of the results and their significance at the completion of today's examination. Dr. Federica Love D.O. ht/:09/08/2013 14:25:35 Well Logging Captain: Shilpa Cameron RT(R)(M), [facility] [place] This exam was dictated and interpreted by [id number] for XIN Cagle. letter sent: Biopsy Mammogram BI-RADS: 4 Suspicious abnormality Ultrasound BI-RADS: 4 Suspicious abnormality 09/08/2013 - - Read by: Federica Love Dictated Date/time: 09/08/13 14:25 Electronically Signed by: Federica Love , DO 09/08/13 14:25 FINAL REPORT [facility] Digital Mammo DX [facility] Digital Mammo DX [place] [facility] - DIGITAL MAMMO DX [facility] - BREAST US/R BILATERAL DIGITAL DIAGNOSTIC MAMMOGRAM AND TARGETED RIGHT ULTRASOUND: 09/08/2013 CLINICAL: Palpable Abnormality of 2 weeks duration, prior sternotomy 2010, positive family history. Comparison is made to exams dated: 09/23/2012 mammogram, 09/19/2011 mammogram, 09/13/2010 mammogram and 08/11/2009 mammogram - [facility]. The tissue of both breasts is heterogeneously dense. This may lower the sensitivity of mammography. This area was not mammographically evaluated due to its extreme medial and posterior location. Targeted ultrasound of the right breast as directed by the patient at 3:00 10cm from the nipple demonstrates a 20 x 12 x 28mm heterogeneous mass corresponding to palpable lump. An adjacent smaller similar appearing 6 x 4 x 6 mm mass noted at 3:00 11cm from the nipple. No sonographically abnormal appearing lymph nodes identified in the right axilla. No significant masses, calcifications, or other findings are seen in either breast on the mammogram or targeted ultrasound. IMPRESSION: SUSPICIOUS OF MALIGNANCY, TARGETED ULTRASOUND SUSPICIOUS OF MALIGNANCY Palpable lump in right breast 3:00 10cm from the nipple corresponds to a 28mm heterogeneous mass with adjacent similar appearing 6 mm mass noted at 3:00 11cm from the nipple. Recommend ultrasound guided core biopsy of 28mm mass. Management of the smaller lesion may be dependent on pathology of biopsied area. SUMMARY: I notified the patient of the results and their significance at the completion of today's examination. Dr. Federica Love D.O. ht/:09/08/2013 14:25:35 Well Logging Captain: Shilpa LEWIS(Jimena)(Pricilla), [facility] This exam was dictated and interpreted by [id number] for Shannan. letter sent: Biopsy Mammogram BI-RADS: 4 Suspicious abnormality Ultrasound BI-RADS: 4 Suspicious abnormality 09/08/2013 - - Read by: Federica Love Dictated Date/time: 09/08/13 14:25 Electronically Signed by: Federica Love , DO 09/08/13 14:25 FINAL REPORT [facility] Vital Signs Vital Sign Value Date Comments Source Temperature Oral (F) 98.3 F 01/21/2015 [facility] Systolic (mm Hg) 143 01/21/2015 [facility] Diastolic (mm Hg) 57 01/21/2015 [facility] Heart Rate 71 01/21/2015 [facility] Respitory Rate 16 01/21/2015 [facility] Systolic (mm Hg) 146 01/21/2015 [facility] Diastolic (mm Hg) 61 01/21/2015 [facility] Respitory Rate 18 01/21/2015 [facility] Heart Rate 76 01/21/2015 [facility] Temperature Oral (F) 97.6 F 01/21/2015 [facility] Temperature Oral (F) 98.1 F 01/21/2015 [facility] Heart Rate 80 01/21/2015 [facility] Respitory Rate 16 01/21/2015 [facility] Systolic (mm Hg) 149 01/21/2015 [facility] Diastolic (mm Hg) 55 01/21/2015 [facility] BMI Calculated 23.74 01/04/2015 [facility] Height 162.56 cm 01/04/2015 [facility] Weight 62.727 01/04/2015 [facility] Encounters Location Location Details Encounter Type Encounter Number Reason For Visit Attending Provider ADM Date DC Date Status Source [facility] [place] [facility] [id number] Nik Nicolas 08/17/2014 08/18/2014 ESTHER Cagle [facility] [place] [facility] [id number] Nik Nicolas 09/17/2014 09/18/2014 [facility] [place] [facility] Inpatient [id number] Stefano Wayne 01/11/2015 01/21/2015 [place] [facility] [place] [facility] [id number] Nik Nicolas 02/11/2015 02/12/2015 [facility] [place] [facility] Outpatient [id number] Stefano Wayne 02/17/2015 02/18/2015 [place] [facility] [place] [facility] [id number] Nik Nicolas 04/14/2015 04/15/2015 [facility] [place] [facility] [place] [facility] [id number] Nik Nicolas 04/20/2015 04/21/2015 [facility] [place] [facility] [place] [facility] [id number] Nik Nicolas 09/21/2015 09/22/2015 [facility] [place] [facility] [place] [facility] [id number] Nik Nicolas 02/20/2017 02/21/2017 [facility] [place] [facility] [place] [facility] [id number] Nik Nicolas 09/11/2017 09/12/2017 [facility] [place] Procedures Procedure Code Date Perfomer Comments Source Appendectomy [id number] [facility] [place] Cholecystectomy [id number] [facility] [place] Coronary artery bypass grafts x 4 [id number] [facility] [place] Hernia repair [id number] [facility] [place] Appendectomy [id number] [facility] Cholecystectomy [id number] [facility] Coronary artery bypass grafts x 4 [id number] [facility] Hernia repair [id number] [facility]
--- OUTSIDE RECORDS SUMMARY | 2018-10-09 10:25 | XMS REPORT | Summary of Care ---
Author Organization Unknown Address Unknown Phone Unavailable Encounter HQ Mavisr_shlomo(FIN) [id number] Date(s): 04/20/15 - 04/20/15 [facility] Outpatient Imaging - [place] [address] [place] [address]- [facility] [phone] Discharge Disposition: Home Physician Attending: Nik Nicolas [...]
--- OUTSIDE RECORDS SUMMARY | 2018-10-09 10:25 | XMS REPORT | Summary of Care ---
Author Organization Unknown Address Unknown Phone Unavailable Encounter HQ Diontr_shlomo(NAVJOT) [id number] Date(s): 09/17/14 - 09/17/14 [facility] Outpatient Imaging - [address] [address] Discharge Disposition: Home Physician Attending: Nik Nicolas MD Reason for Visit 793.80 - ABL MAMMOGRAM N Problem List No data available for this section Allergies, Adverse Reactions, Alerts No data available for this section Medications No data available for this section Medications Administered During Your Visit No data available for this section Immunizations No data available for this section
--- OUTSIDE RECORDS SUMMARY | 2018-10-09 10:26 | XMS REPORT ---
Author [facility] Address Unknown Phone Unavailable Care Team Providers Care Housing Manager Name Role Phone KIMMY ARMSTRONG Unavailable Unavailable Payers Payer Name Policy Type Policy Number Effective Date Expiration Date Problems This patient has no known problems. Allergies, Adverse Reactions, Alerts Allergy Name Allergy Type Status Severity Reaction(s) Onset Date Inactive Date Treating Clinician Comments cuauhtemoc Rocha 2018-04-02 00:00:00 Medications This patient has no known medications. Results Test Description Test Time Test Comments Text Results Atomic Results Result Comments CHEST 2 VIEWS [place] [address] Patient Name: NASIMA LAWLER MR #: [id number] : 1945 Age/Sex: 72/F Req #: [id number] Adm Physician: Ordered by: KIMMY ARMSTRONG MD Report #: [id number] Location: OR Room/Bed: Procedure: [id number] DX/CHEST 2 VIEWS Exam Date: 08/09/17 Exam Time: 1315 REPORT STATUS: Signed PROCEDURE: Frontal and lateral views of the chest. COMPARISON: Patients [facility], CT, CT ABDOMEN/PELVIS W, 01/08/2017, 17:40. [facility], DX, CHEST SINGLE (PORTABLE), 06/21/2017, 9:18. INDICATIONS: PRE OPERATIVE CHEST X-RAY FOR INGUINAL HERNIA REPAIR FINDINGS: Lines/tubes: None. Lungs: The lungs are well-inflated. Prominence of the interstitial markings is again noted. No consolidation. Pleura: Elevation of the right hemidiaphragm. No effusion, or pneumothorax. Heart and mediastinum: Cardiac silhouette is unremarkable. Stable prominence of the pulmonary arteries. CABG changes. Bones: No acute bony abnormality. Degenerative changes in the thoracic spine. IMPRESSION: 1. no acute abnormalities. 2. Prominence of the interstitial markings, similar to prior plain film and CT, likely reflecting chronic interstitial changes. 3. Stable elevation of the right hemidiaphragm. Shell Gonzalez M.D. Dictated by: Shell Gonzalez M.D. on 08/09/2017 at 13:57 Electronically approved by: Shell Gonzalez M.D. on 08/09/2017 at 13:57 Dictated By: SHELL GONZALEZ MD [id number] Transcribed By: LAI on 08/09/17 7629 COPY TO: KIMMY ARMSTRONG MD
--- OUTSIDE RECORDS SUMMARY | 2018-10-09 10:26 | XMS REPORT | Summary of Care ---
Author Author [facility] - [place] Organization [facility] [place] Address Unknown Phone Unavailable Encounter HQ Abby_shlomo(FIN) [id number] Date(s): 02/20/17 - 02/20/17 [facility] Outpatient Imaging - [place] [address] [place] [address] [phone] Discharge Disposition: Home or Self Care Attending Physician: Nik Nicolas MD Vital Signs No data [...]
--- OUTSIDE RECORDS SUMMARY | 2018-10-09 10:26 | XMS REPORT | Summary of Care ---
Author Author [facility] - [place] Organization [facility] - [place] Address Unknown Phone Unavailable Encounter HQ Abby_shlomo(FIN) [id number] Date(s): 09/11/17 - 09/11/17 [facility] Outpatient Imaging - [place] [address] [place] [address] [phone] Discharge Disposition: Home or Self Care Attending [...]
[2018-10-09] MEDS ORDERED: SODIUM CHLORIDE 0.9% 1000ML 1,000 ML IV STA (11:04)
[2018-10-09 11:12] LABS: BASOPHILS # (AUTO) 0.2 (0.0-0.1); BASOPHILS % 0.7 % (0.0-1.0); EOSINOPHILS # (AUTO) 0.3 (0.0-0.4); EOSINOPHILS % 1.2 % (0.0-6.0); HEMATOCRIT 38.6 % (34.2-44.1); LYMPHOCYTES # (AUTO) 1.8 (1.0-3.2); LYMPHOCYTES % 6.3 % (18.0-39.1); MEAN CORPUSCULAR HEMOGLOBIN 25.4 pg (28-32); MEAN CORPUSCULAR HGB CONC 28.5 g/dL (31-35); MEAN CORPUSCULAR VOLUME 89.1 fL (81-99); MONOCYTES # (AUTO) 1.3 (0.2-0.8); MONOCYTES % 4.4 % (4.4-11.3); NEUTROPHILS # (AUTO) 24.1 (2.1-6.9); NEUTROPHILS % 85.7 % (38.7-80.0); PLATELET COUNT 926 x10e3/uL (140-360); RED BLOOD COUNT 4.33 x10e6/uL (3.6-5.1); RED CELL DISTRIBUTION WIDTH 21.9 % (11.7-14.4)
[2018-10-09 11:29] LABS: ALBUMIN 3.2 g/dL (3.5-5.0); ALBUMIN/GLOBULIN RATIO 0.8 (0.8-2.0); ANION GAP 17.2 mmol/L (8-16); CALCIUM 9.5 mg/dL (8.4-10.2); CREATININE, SERUM 2.8 mg/dL (0.57-1.11); POTASSIUM 4.2 mmol/L (3.5-5.1)
[2018-10-09 11:36] LABS: CREATINE KINASE MB 1.8 ng/mL (0-5.0)
--- NOTE | 2018-10-09 12:30 | Diagnostic Imaging Report ---
Examination: Single AP view of the chest. COMPARISON: None. INDICATION: Chest pain DISCUSSION: Lung volumes are low. Blunting of the bilateral costophrenic sulci suggestive of trace effusions. Postsurgical changes of the mediastinum with median sternotomy wires and mediastinal surgical clips. Prominence of the central pulmonary vasculature. No focal airspace consolidation or pneumothorax. Acute, comminuted fracture of the proximal left humerus partially visualized. Inferior displacement of the left humeral head may relate to hemarthrosis. IMPRESSION: Low lung volumes with mild interstitial pulmonary edema and trace bilateral pleural effusions. Postsurgical changes of the mediastinum. Acute comminuted proximal left humeral fracture partially visualized. Dedicated left shoulder and humeral radiographs are suggested for further evaluation. Signed by: Dr. Nik Dahl M.D. on 10/09/2018 12:27 PM
[2018-10-09] MEDS ORDERED: VANCOMYCIN 1GM/NS 250 ML 250 ML IV SCH (12:45)
[2018-10-09] MEDS: CEFEPIME HCL 2 GM VIAL IV SCH (13:12)
[2018-10-09] MEDS: SODIUM CHLORIDE 0.9% 1000ML 1,000 ML IV SCH (13:12)
[2018-10-09] MEDS ORDERED: CLOPIDOGREL75 MG PO (13:16)
[2018-10-09] MEDS ORDERED: METHENAMINE HIPP1 GM PO (13:16)
--- NOTE | 2018-10-09 13:17 | Diagnostic Imaging Report ---
Exam: Head CT without contrast History: Altered mental status Comparison studies: Head CTs of 06/21/2017 and 01/04/2017 Technique: Axial images were obtained from the skull base to the vertex. Coronal and sagittal images reconstructed from the axial data. Dose modulation, iterative reconstruction, and/or weight based adjustment of the mA/kV was utilized to reduce the radiation dose to as low as reasonably achievable. Radiation dose: Total DLP: 832 mGy*cm. Estimated effective dose: DLP x 0.015 Intravenous contrast: None Findings: Scalp: No abnormalities. Bones: No fractures, blastic or lytic lesions. Brain sulci: Mildly prominent but age appropriate. Ventricles: Normal in size and configuration. No hydrocephalus. Extra-axial spaces: No masses, no fluid collection. Parenchyma: No mass, acute hemorrhage or acute or chronic cortical vascular insults Sellar/suprasellar region: No abnormalities. Craniocervical junction: Patent foramen magnum. No Chiari one malformation. Paranasal sinuses: Chronic inflammatory changes in the left sphenoid sinus which is completely opacified with central hyperdense secretions and chronic reactive osteitis along the sinus higgins. Incidental findings: Left lens replacement for previous cataract surgery. Atherosclerotic calcifications in the carotid siphons and in the intradural vertebral arteries. IMPRESSION: 1. No acute intracranial abnormalities. 2. No changes from the previous head CT of 06/21/2017. 3. Chronic inflammatory changes in the left sphenoid sinus. Signed by: Dr. Nik Jackson M.D. on 10/09/2018 1:14 PM
[2018-10-09 13:39] LABS: BILIRUBIN,URINE NEGATIVE (NEGATIVE); CLARITY,URINE SL CLOUDY (CLEAR); COLOR,URINE ORANGE (YELLOW); KETONES,URINE TRACE (NEGATIVE); LEUKOCYTE ESTERASE ,URINE TRACE (NEGATIVE); NITRITE,URINE POSITIVE (NEGATIVE); PROTEIN,URINE DIPSTICK 2+ (NEGATIVE); URINE UROBILINOGEN 4 mg/dL (0.2 - 1)
[2018-10-09 13:58] LABS: BACTERIA,URINE FEW /HPF; EPITHELIAL CELLS,URINE FEW /LPF
[2018-10-09 13:59] LABS: AMORPHOUS SEDIMENT,URINE RARE (FEW)
[2018-10-09 14:00] VITALS: BP 117/62
--- NOTE | 2018-10-09 14:00 | NUR ---
PATIENT ARRIVED TO ROOM 295. SHE IS AAOX1-2, NO S/S OF DISTRESS NOTED, DENIES PAIN OR DISCOMFORT AT THIS TIME. PATIENT ORIENTED TO ROOM. BED ALARM ON. BED IN THE LOWEST POSITION. CALL LIGHT WITHIN REACH.
--- NOTE | 2018-10-09 14:05 | NUR ---
UPON ASSESSMENT PATIENT HAS LEFT ARM ON A SLING, PER REPORT PATIENT FRACTURED HER SHOULDER PREVIOUSLY. BRUISES TO UPPER LEFT ARM AND LEFT HIP.
[2018-10-09 14:27] VITALS: BP 117/62
[2018-10-09] MEDS ORDERED: ONDANSETRON HCL INJ 2 MG/ML VIAL IV PRN (14:45)
--- NOTE | 2018-10-09 16:12 | History and Physical ---
CHIEF COMPLAINT: Fall. HPI: This patient is a very poor historian, and information being obtained is very limited. This is a 73-year-old female with multiple admissions in the past who, according to the records, reports recently fell down on her left arm and was at [facility]. Unsure if she was admitted and discharged at the same time. Now presents after having a syncopal episode that occurred at home. According to the patient at bedside, she reports that she tripped on the ground and landed on the ground. She denies any reports of seizure-like activity, facial drooping, stroke-like symptoms, chest pain or palpitations. She does remember having a fall in which she tripped. She denies any recent sickness, cough, congestion or any fever. The patient is seen and evaluated at bedside on the medical floor, currently doing okay with no other issues. She is being admitted for underlying sepsis due to UTI. REVIEW OF SYSTEMS: Pertinent positives: Mechanical fall. Pertinent negatives: Denies any chest pain, palpitations, nausea, vomiting, diarrhea, dysuria, hematuria, frequency, urgency, lightheadedness, dizziness, abdominal pain, headache, shortness of breath, cough, congestion, fever or any other complaints. The rest of the 14-point review of systems have been reviewed with the patient and are negative. ALLERGIES: CODEINE. HOME MEDICATIONS 1. Allopurinol 300 mg daily. 2. Aspirin 81 mg daily. 3. Plavix 75 mg daily. 4. Furosemide 80 mg daily. 5. Levothyroxine 50 mcg daily. 6. Lisinopril 5 mg daily. 7. Lovastatin 40 mg daily. 8. Protonix 40 mg daily. 9. Rifaximin 60 mg daily. PAST MEDICAL HISTORY: Medically debilitated, chronic UTI, hypertension, hypothyroidism, CAD. PAST SURGICAL HISTORY: Reported none. FAMILY HISTORY: Hypertension and diabetes. SOCIAL HISTORY: No drugs. No alcohol. Does not smoke. Good social support. VITAL SIGNS: Temperature is 97.8, pulse 98, respiratory rate 18, blood pressure 117/62, pulse ox 96% on 2 L nasal cannula. LAB FINDINGS: White count is 28, hemoglobin 11, hematocrit 38.6, platelets 926. Chemistry: Sodium 138, potassium 4.2, chloride 99, bicarb 24, anion gap 17, BUN 67, creatinine 2.8, glucose 121, lactic acid 12, calcium 9.5, phosphorus 2.5, magnesium 1.8, total bilirubin 1, AST 17, ALT 10, CK 33. Troponin 0.066. BNP 860. Total protein 7.2. Albumin is 2.2. Vitamin B12 is 1145. Urinalysis is concerning for UTI. Blood and urine cultures are pending. IMAGING STUDIES: CT brain: No acute intracranial abnormality. Chest x-ray: Low lung volumes with mild interstitial pulmonary edema with trace bilateral pleural effusions. PHYSICAL EXAMINATION GENERAL: The patient is in no acute distress, alert and oriented x3, cooperative on examination. HEENT: Head is normocephalic, atraumatic. Eyes: Pupils are equal and reactive to light bilaterally. Extraocular movements are intact bilaterally. NECK: Supple with good range of motion. THROAT: No evidence of erythema or exudates in the posterior pharynx. Has poor dentition. PULMONARY: Clear to auscultation bilaterally. No wheezing, no rales, no rhonchi or crackles appreciated. CARDIOVASCULAR: Positive S1 and S2. No murmurs, rubs or gallops appreciated. ABDOMEN: Soft, nondistended, nontender on palpation. Bowel sounds are present. MUSCULOSKELETAL: Strength 5/5 throughout. No evidence of musculoskeletal deficit on exam. No weakness appreciated. NEUROLOGIC: Cranial nerves II through XII are grossly intact. No evidence of neurological deficit on exam. SKIN: Intact. Warm to touch. Good capillary refill. PSYCHIATRIC: Normal affect and mood. EXTREMITIES: No edema. Good range of motion throughout. ASSESSMENT AND PLAN 1. Sepsis with leukocytosis due to likely urinary tract infection: Blood and urine cultures are pending. She is on IV cefepime. Will also get an ID consultation to come evaluate and treat. 2. Chronic kidney disease, stage 3-4: Unsure about the patient's baseline creatinine. She only has 2 levels of creatinine at this hospital stay only. We will hold IV fluids due to worsening pulmonary edema and get a.m. labs. 3. Hypertension: Currently, the blood pressure is stable. We are going to continue the same home medications with no changes. 4. Syncopal episode and mechanical fall: The patient reports that she mechanically tripped on the ground leading to her fall. There is no further workup needed as the patient recollects exactly what happened to her. Will get PT and OT to eval and treat. 5. History of coronary artery disease, stable: Cardioprotective meds, monitor closely. 6. Fluids, electrolytes and nutrients: Discontinue IV fluids. Start on regular diet. 7. Prophylaxis: Lovenox. 8. Disposition: Inpatient, ID consulted. 9. Discharge planning: We will wait for final urine culture in order for us to discharge her home on a certain regimen. I will continue with PT and OT as well. She will have to be here for several more days prior to being discharged. In addition to her urinary Lainez, I was told that the patient takes Azo, likely leading to the underlying discoloration of the urine, but we will have to monitor that closely. Job#: [id number]
[2018-10-09] MEDS ORDERED: CARVEDILOL 3.125 MG PO SCH (17:00)
[2018-10-09] MEDS: CARVEDILOL 3.125 MG TAB PO SCH (17:49)
--- NOTE | 2018-10-09 19:21 | NUR ---
REPORT GIVEN TO ONCOMING NURSE. NO ACUTE DISTRESS NOTED. PATIENT REPOSITIONED. CALL LIGHT WITHIN REACH. BED IN THE LOWEST POSITION.
--- NOTE | 2018-10-09 19:23 | NUR ---
Received change of shift report from AM nurse. Walking rounds completed.
[2018-10-09 19:33] LABS: CREATINE KINASE MB 2.7 ng/mL (0-5.0)
[2018-10-09 20:13] VITALS: BP 106/45
[2018-10-09] MEDS: NORTRIPTYLINE HCL 25 MG CAP PO SCH (21:00)
[2018-10-09] MEDS ORDERED: NON-FORMULARY MEDICATION (Nortriptyline Hcl 50 MG) PO SCH (21:00)
[2018-10-09] MEDS: SIMVASTATIN 40 MG TAB PO SCH (21:00)
--- NOTE | 2018-10-09 21:00 | NUR ---
Patient AAOx1-2, Lainez to bedside draining orange color urine. IV to right hand 20G with NS at 50cc/hr dry intact and patent. Patient refused to put on trino hose at this time. Repositioned patient in bed.
--- NOTE | 2018-10-09 23:11 | NUR ---
Patient request pain med. for neck pain. Will give meds as ordered by MD. Repositioned in bed.
[2018-10-09] MEDS: HYDROCODONE/APAP 5MG-325MG TAB PO PRN (23:12)
[2018-10-10] VITALS (8 sets, daily range): BP systolic 99–135; BP diastolic 36–60
[2018-10-10] MEDS: CEFEPIME HCL 2 GM VIAL IV SCH (00:45)
--- NOTE | 2018-10-10 02:11 | NUR ---
Patient resting quitly. Denies pain at this time. Continue monitor.
[2018-10-10] MEDS: SODIUM CHLORIDE 0.9% 1000ML 1,000 ML IV SCH ×2 (05:04→23:47)
[2018-10-10] MEDS: ACETAMINOPHEN 325 MG TAB PO PRN (05:05)
[2018-10-10] MEDS: LEVOTHYROXINE SODIUM 50 MCG TAB PO SCH (05:06)
[2018-10-10] MEDS: ALBUTEROL SULF 0.083% NEB SOLN 3 ML NEB NEB SCH ×3 (06:00→20:00)
--- NOTE | 2018-10-10 06:37 | NUR ---
Lab called with abnormal results h and h 7.7,28.6. K=2.8 and calcium=6.6. S/W Dr Simpson. Lab to repeat lab draw. Will report to day shift.
--- NOTE | 2018-10-10 07:08 | NUR ---
RECEIVED PATIENT RESTING IN BED. NO S/S OF DISTRESS NOTED. SITTER AT BEDSIDE. CALL LIGHT WITHIN REACH. BED IN THE LOWEST POSITION. WILL CONTINUE TO MONITOR. Addendum: 10/10/18 at 0710 by KAVITA CHOWDHURY RN WRONG ENTRY.
--- NOTE | 2018-10-10 07:10 | NUR ---
RECEIVED PATIENT RESTING IN BED. NO ACUTE DISTRESS NOTED. CALL LIGHT WITHIN REACH. BED IN THE LOWEST POSITION. BED ALARM ON.
[2018-10-10 07:19] LABS: ALBUMIN 2.4 g/dL (3.5-5.0); ALBUMIN/GLOBULIN RATIO 0.8 (0.8-2.0); ANION GAP 11.6 mmol/L (8-16); CALCIUM 8.3 mg/dL (8.4-10.2); CREATININE, SERUM 1.86 mg/dL (0.57-1.11); POTASSIUM 3.6 mmol/L (3.5-5.1)
[2018-10-10 07:22] LABS: BASOPHILS # (AUTO) 0.1 (0.0-0.1); BASOPHILS % 0.6 % (0.0-1.0); EOSINOPHILS # (AUTO) 0.4 (0.0-0.4); EOSINOPHILS % 2.2 % (0.0-6.0); HEMATOCRIT 31.8 % (34.2-44.1); HEMOGLOBIN 8.9 g/dL (12.0-16.0); LYMPHOCYTES # (AUTO) 1.2 (1.0-3.2); LYMPHOCYTES % 6.6 % (18.0-39.1); MEAN CORPUSCULAR HEMOGLOBIN 25.1 pg (28-32); MEAN CORPUSCULAR VOLUME 89.6 fL (81-99); MONOCYTES # (AUTO) 0.7 (0.2-0.8); MONOCYTES % 3.8 % (4.4-11.3); NEUTROPHILS # (AUTO) 15.7 (2.1-6.9); NEUTROPHILS % 85.5 % (38.7-80.0); PLATELET COUNT 561 x10e3/uL (140-360); RED BLOOD COUNT 3.55 x10e6/uL (3.6-5.1); RED CELL DISTRIBUTION WIDTH 21.1 % (11.7-14.4)
[2018-10-10 07:50] LABS: CREATINE KINASE MB 2.7 ng/mL (0-5.0)
[2018-10-10] MEDS ORDERED: LISINOPRIL 10 MG TAB PO SCH (09:00)
[2018-10-10] MEDS ORDERED: SIMVASTATIN 20 MG TAB PO SCH (09:00)
[2018-10-10] MEDS ORDERED: LISINOPRIL 2.5 MG TAB PO SCH (09:00)
[2018-10-10] MEDS ORDERED: RALOXIFENE HCL 60 MG TAB PO SCH (09:00)
[2018-10-10] MEDS ORDERED: ASPIRIN 81 MG CHEW TAB PEG SCH (09:00)
--- NOTE | 2018-10-10 10:00 | NUR ---
PER DR. ACEVES, WING PATIENT OFF OF OXYGEN.
[2018-10-10] MEDS: ANAGRELIDE HCL 0.5 MG CAP PO SCH ×2 (10:06→16:26)
[2018-10-10] MEDS: PANTOPRAZOLE SOD 40 MG TABEC PO SCH (10:06)
[2018-10-10] MEDS: ALLOPURINOL 300 MG TAB PO SCH (10:07)
[2018-10-10] MEDS: CARVEDILOL 3.125 MG TAB PO SCH ×2 (10:07→16:21)
[2018-10-10] MEDS: CLOPIDOGREL BISULFATE 75 MG TAB PO SCH (10:07)
--- NOTE | 2018-10-10 11:02 | NUR ---
CASE MANAGEMENT INITIAL ASSESSMENT Banding Machine Operator to bedside to discuss plan of care with patient/family. CM/SW role and care transitions discussed. Anticipated discharge plan discussed along with duration of care. CM/SW discussed patients right to make decisions in care. CM/SW work hours given. Patient lives: AT HOME WITH ELVIRA Admit/Transfer: POA/Emergency contact: ELVIRA Current/Previous Home Health: NONE BUT REQUESTING PCP/Follow-up Care: MICHEL Current/Previous DME: HAS NONE Other Services: WAS AT [facility] ON SUNDAY WITH DISLOCATED LEFT SHOULDER AND DISCHARGED Employment Status: HOUSEWIFE Areas of Concerns: STATES CONCERN IS SHE SLEEPS IN CHAIR AND HER LEGS SWELL, THEN SHE TAKES THE LASIX AND THEN SHE BECOMES DEHYDRATED. HE STATES FROM HER SLEEPING IN CHAIR HER HEAD AND POSTURE IS HANGING DOWNWARD. Referral Needs: HOME HEALTH Education Needs: IMM/MCLAUGHLIN given and signed (if applicable): Goal for discharge: STATES WILL NOT GO TO A SNF, STATES HAS BEEN BEFORE AND INSURANCE ONLY PAYS FOR 10 DAYS THEN HE HAS COPAY DAYS AND HE CANT AFFORD IT. REQUESTING HOME WITH HOME HEALTH. CM/SW left business card at the bedside with contact information. Name and number was also written on the patients whiteboard. Patient verbalized understanding of discussion. CM will follow-up with ongoing discharge and transition of care needs.
--- NOTE | 2018-10-10 11:49 | Progress Note ---
DATE: October 10, 2018 PROGRESS NOTE SUBJECTIVE: Patient is much more alert today. On examination looks more hydrated. I have discussed the case with the at bedside and he verbalized understanding. OBJECTIVE VITAL SIGNS: Temperature is 97.2, pulse 83, respiratory rate of 16, blood pressure is 108/60, pulse ox 96% on 2L nasal cannula. Try to wean her off of oxygen. LABS: Show white count of 18.3, hemoglobin 8.9, hematocrit 31, and platelet of 561. Chemistry: Sodium 139, potassium 3.6, chloride 107, bicarb 24, anion gap of 11, BUN is 62, creatinine is 1.86, and calcium is 8.3. AST is 13 and ALT 7. Rest of the labs are within normal range. Urine cultures are pending. Blood cultures are pending. PHYSICAL EXAMINATION GENERAL: Not in acute distress. Alert and oriented x3, cooperative on examination. HEENT: Head normocephalic, atraumatic. Eyes: Pupils equal, round, reactive to light bilaterally. Extraocular movements are intact bilaterally. NECK: Supple with good range of motion. THROAT: No evidence of any erythema or exudates in the posterior pharynx. Has poor dentition. PULMONARY: Clear to auscultation bilaterally. No wheezing, no rales, no rhonchi, no crackles appreciated. CARDIOVASCULAR: Positive S1 and S2. No murmurs, rubs, or gallops appreciated. ABDOMEN: Soft, nondistended, nontender to palpation. Bowel sounds present. MUSCULOSKELETAL: Strength is 5/5 throughout. No evidence of any musculoskeletal deficit on examination. No weakness appreciated. NEUROLOGICAL: Cranial nerves II through XII are grossly intact. No evidence of any neurological deficit on exam. SKIN: Intact. Warm to touch. Good capillary refill. PSYCHIATRIC: Normal affect and mood. EXTREMITIES: No edema. Good range of motion throughout. IMPRESSION 1. Sepsis with leukocytosis due to underlying urinary tract infection-blood and urine cultures are pending, continue IV cefepime. ID is following and has been consulted. 2. Chronic kidney disease, stage 3-creatinine is improving likely due to dehydration, continue with IV fluids, all diuretics, and LIBERTY inhibitors. 3. Hypertension: Currently stable. Continue the same home medications. 4. Syncopal fall likely due to mechanical fall from hypovolemia from dehydration-continue with PT and OT. 5. History of coronary artery disease-stable. Continue the cardioprotective meds, hold the aspirin. Continue with Plavix. 6. Fluids, electrolytes and nutrients-continue with IV fluids low dose and regular diet. 7. Prophylaxis-Lovenox. 8. Disposition-inpatient, ID consulted. 9. Discharge planning: We are going to wait for urine cultures and improvement of her creatinine prior to discharge home. Her urine being red secondary to Azo. I discussed overall plan of care with the at bedside and he verbalized understanding with the nurse present. Job#: [id number] ANTHONY
[2018-10-10] MEDS: HYDROCODONE/APAP 5MG-325MG TAB PO PRN (14:03)
[2018-10-10 14:33] LABS: CREATINE KINASE MB 3.4 ng/mL (0-5.0)
--- NOTE | 2018-10-10 14:46 | NUR ---
spoke with dr. khanna and patient to follow up out patient.
--- NOTE | 2018-10-10 16:32 | Consultation ---
DATE OF CONSULTATION: October 10, 2018 REASON FOR CONSULTATION: UTI. HISTORY OF PRESENT ILLNESS: Ms. Riddle is well known to me. She is a 73-year-old with history of gout, history of hypertension, hypothyroidism, hypercholesterolemia, recurrent UTI on suppressive treatment as an outpatient. Apparently, the patient while walking, she fell, injured her left arm. Patient fracture. She came in to the emergency room. The patient apparently has been passing out recently. Patient is being admitted. She is currently lying in bed complaining of pain in the shoulder. PAST MEDICAL HISTORY: As mentioned above recurrent UTI, hypertension, gout, hypothyroidism, coronary artery disease. PAST SURGICAL HISTORY: Denies. ALLERGIES: NKA. SOCIAL HISTORY: There is no smoking, drug abuse, or alcohol abuse. FAMILY HISTORY: Diabetes. REVIEW OF SYSTEMS: At present time; HEENT: Negative. PULMONARY: Negative. CARDIAC: Negative. : Negative. SKIN: There is no other rash. Her laboratory data reviewed. Her urine culture is negative. MEDICATION: She is on Coreg, Plavix, Proventil, Synthroid, and cefepime. LABORATORY DATA: White count on admission wa0 28.16 came down to 18.3 and hemoglobin 8.9. Sodium 139, potassium 3.6, creatinine 1.86. patient had a chest x-ay upon arrival, which was pulmonary edema, acute proximal left humeral fracture. PHYSICAL EXAMINATION GENERAL: She is currently alert and oriented, does not seem to be in acute distress. VITALS: Stable, currently afebrile. HEENT: She is not icteric. NECK: Supple. CHEST: Clear. HEART: S1 and S2. No S3, S4 or murmur. ABDOMEN: Soft. Bowel sounds present. No tenderness. EXTREMITIES: No edema. SKIN: There is no rash. She does have significant bruising noted on the left shoulder with abnormal deformity noted. IMPRESSION 1. Fracture shoulder. 2. Leukocytosis reactive from history bacteriuria, asymptomatic, stable. 3. Acute kidney injury. 4. Chronic kidney disease. 5. Fluid overload. 6. Mild congestive heart failure. I will recommend to discontinue cefepime. Recheck CBC. Recheck Chem panel. Consult orthopedic. Will follow. Job#: [id number] ALYSSA
--- NOTE | 2018-10-10 19:26 | NUR ---
REPORT GIVEN TO ONCOMING NURSE. PATIENT IS RESTING IN BED, NO S/S OF ACUTE DISTRESS NOTED. CALL LIGHT WITHIN REACH. BED IN THE LOWEST POSITION. BED ALARM ON.
--- NOTE | 2018-10-10 19:45 | NUR ---
Received change of shift report from AM nurse. Walking rounds completed.
[2018-10-10] MEDS: NORTRIPTYLINE HCL 25 MG CAP PO SCH (21:00)
[2018-10-10] MEDS: SIMVASTATIN 40 MG TAB PO SCH (21:00)
[2018-10-11] VITALS (7 sets, daily range): BP systolic 115–194; BP diastolic 51–77
[2018-10-11] MEDS: ALBUTEROL SULF 0.083% NEB SOLN 3 ML NEB NEB SCH ×3 (00:31→15:10)
--- NOTE | 2018-10-11 05:24 | NUR ---
Patient repositioned in bed. Pain meds given as requested.
[2018-10-11] MEDS: LEVOTHYROXINE SODIUM 50 MCG TAB PO SCH (05:47)
[2018-10-11] MEDS: CARVEDILOL 3.125 MG TAB PO SCH ×2 (08:35→16:58)
[2018-10-11] MEDS: ANAGRELIDE HCL 0.5 MG CAP PO SCH ×2 (08:35→16:58)
[2018-10-11] MEDS: CLOPIDOGREL BISULFATE 75 MG TAB PO SCH (08:35)
[2018-10-11] MEDS: PANTOPRAZOLE SOD 40 MG TABEC PO SCH (08:35)
[2018-10-11] MEDS: ALLOPURINOL 300 MG TAB PO SCH (08:35)
--- NOTE | 2018-10-11 11:03 | Progress Note ---
DATE: October 11, 2018 MEDICINE PROGRESS NOTE SUBJECTIVE: Patient is doing much better today with no other issues. She still has not drank a whole lot of fluids and not eating much according to the . OBJECTIVE VITAL SIGNS: Temperature is 98.1, pulse 67, respiratory rate 22, blood pressure is 129/60, pulse ox is 98% on 2 L nasal cannula. GENERAL: Not in acute distress. Alert and oriented times 3. Cooperative on examination. HEENT: Head is normocephalic and atraumatic. Eyes: Pupils equal, round and reactive to light bilaterally. Extraocular movements intact bilaterally. NECK: Supple. Good range of motion. Throat with no evidence of any erythema or exudates in the posterior pharynx. Has poor dentition. PULMONARY: Clear to auscultation bilaterally. No wheezing. No rales. No rhonchi. No crackles appreciated. CARDIOVASCULAR: Positive S1 and S2. No murmurs, rubs or gallops appreciated. ABDOMEN: Soft, nondistended and nontender to palpation. Bowel sounds present. MUSCULOSKELETAL: Strength is 5/5 throughout. No evidence of any muscle deficit on examination. No weakness appreciated. NEUROLOGICAL: Cranial nerves II-XII are grossly intact. No evidence of any neurological deficits on exam. SKIN: Intact. Warm to touch. Good cap refill. PSYCHIATRIC: Normal affect and mood. EXTREMITIES: No edema. Good range of motion throughout. LAB FINDINGS: Show a white count of 18.3, hemoglobin 8.9, hematocrit is 31.8, and platelets of 561,000. Chemistry: Sodium 139, potassium 3.6, chloride 107, bicarb 24, anion gap of 11, BUN 62, creatinine 1.86, glucose is 33. Calcium is 110. LFTs were normal. Urine cultures were found to be negative. Blood cultures were found to be negative. IMAGING STUDIES: None. IMPRESSION 1. Sepsis with underlying leukocytosis: Concern for urinary tract infection. Infectious disease has been consulted. Recommending stopping intravenous cefepime. 2. Chronic kidney disease, stage 3: Creatinine is improving after intravenous fluid resuscitation. 3. Hypertension: Currently stable. Continue home medications. 4. Syncopal fall: Likely due to mechanical fall and mild anemia from dehydration. Continue with physical therapy and occupational therapy. 5. History of coronary artery disease: Stable. Continue cardioprotective meds including aspirin and Plavix. 6. Fluids, electrolytes and nutrients: Continue with intravenous fluids for those. 7. Prophylaxis: Lovenox. 8. Disposition: Inpatient infectious disease consulted and following. 9. Discharge planning: Plan to discharge home tomorrow once the white count has improved, as well as the creatinine improved. Job#: [id number] RI
--- NOTE | 2018-10-11 14:32 | Progress Note ---
DATE: October 11, 2018 Ms. Riddle is doing better. There is no new complaints at the present time. REVIEW OF SYSTEMS HEENT: Anicteric. PULMONARY: Negative. CARDIAC: Negative. : Negative. PHYSICAL EXAMINATION GENERAL: She is currently alert and oriented. Does not seem to be in acute distress. VITALS: Stable. Currently afebrile. HEENT: She is not icteric. NECK: Supple. CHEST: Clear. CARDIAC: S1 and S2. No S3 or murmurs. ABDOMEN: Soft. Bowel sounds present. No tenderness. EXTREMITIES: No edema. SKIN: No rash. IMPRESSION 1. Leukocytosis, reactive after fracture of her shoulder: Slowly getting better. 2. History of bacteruria. 3. Recurrent urinary tract infection: Cultures are negative. Off antibiotics and stable. Plan for orthopedic and internal medicine. Job#: [id number] ALEK
--- NOTE | 2018-10-11 15:10 | NUR ---
DC d mcdonough catheter, patient tolerated well and patient urinated
--- NOTE | 2018-10-11 15:50 | NUR ---
CALLED ELVIRA LEFT MESSAGE TO RETURN CALL, SPOKE WITH PATIENT SHE CHOOSE [facility]. WILL FAX CLINICALS TO [phone]
--- NOTE | 2018-10-11 15:57 | NUR ---
UNABLE TO FAX DUE TO NO PT NOTES, WILL LEAVE NOTE FOR CM TO FOLLOW UP TOMORROW.
--- NOTE | 2018-10-11 20:57 | NUR ---
RECEIVED PATIENT IN BED CONFUSED RESPIRATIONS ARE EVEN AND UNLABORED . CALL LIGHT WITHIN REACH.. CONTINUE TO MONITOR
[2018-10-11] MEDS: NORTRIPTYLINE HCL 25 MG CAP PO SCH (21:01)
[2018-10-11] MEDS: HYDROCODONE/APAP 5MG-325MG TAB PO PRN (21:02)
[2018-10-11] MEDS: SIMVASTATIN 40 MG TAB PO SCH (21:02)
[2018-10-11] MEDS: SODIUM CHLORIDE 0.9% 1000ML 1,000 ML IV SCH (21:30)
--- NOTE | 2018-10-11 22:43 | NUR ---
BNP [address] ACEVES .STOP THE FLUID AND ORDER TO 40MG IV LASIX
[2018-10-11] MEDS ORDERED: FUROSEMIDE INJ 10 MG/ML 4 ML VIAL IV ONE (22:45)
[2018-10-12] VITALS (8 sets, daily range): BP systolic 133–149; BP diastolic 60–73
[2018-10-12] MEDS: ALBUTEROL SULF 0.083% NEB SOLN 3 ML NEB NEB SCH ×3 (00:10→14:27)
[2018-10-12 05:47] LABS: BASOPHILS # (AUTO) 0.1 (0.0-0.1); BASOPHILS % 0.7 % (0.0-1.0); EOSINOPHILS # (AUTO) 0.3 (0.0-0.4); EOSINOPHILS % 1.4 % (0.0-6.0); HEMATOCRIT 33.2 % (34.2-44.1); HEMOGLOBIN 9.5 g/dL (12.0-16.0); LYMPHOCYTES # (AUTO) 1.4 (1.0-3.2); MEAN CORPUSCULAR HEMOGLOBIN 25.5 pg (28-32); MEAN CORPUSCULAR HGB CONC 28.6 g/dL (31-35); MONOCYTES # (AUTO) 0.9 (0.2-0.8); MONOCYTES % 4.4 % (4.4-11.3); NEUTROPHILS # (AUTO) 17.6 (2.1-6.9); NEUTROPHILS % 85.1 % (38.7-80.0); PLATELET COUNT 617 x10e3/uL (140-360); RED BLOOD COUNT 3.73 x10e6/uL (3.6-5.1)
--- NOTE | 2018-10-12 05:55 | NUR ---
PT WAS CONFUSED OFF AND ON DURING THE NIGHT.DR ACEVES TOLD TO STOP THE FLUID .CALL LIGHT WITH IN REACH .CONTINUE TO MONITOR
[2018-10-12 06:05] LABS: ANION GAP 12.7 mmol/L (8-16); CALCIUM 8.9 mg/dL (8.4-10.2); CREATININE, SERUM 0.97 mg/dL (0.57-1.11); POTASSIUM 3.7 mmol/L (3.5-5.1)
[2018-10-12] MEDS: LEVOTHYROXINE SODIUM 50 MCG TAB PO SCH (06:23)
[2018-10-12 06:24] LABS: BAND NEUTROPHILS % (MANUAL) 2 %; EOSINOPHILS % (MANUAL) 2 % (0-7); HYPOCHROMASIA SLIGHT; LYMPHOCYTES % (MANUAL) 7 % (19-48); MONOCYTES % (MANUAL) 7 % (3.4-9.0); NEUTROPHILS % (MANUAL) 82 % (40-74); PLATELET ESTIMATE SLIGHTLY INCREASED; PLATELET MORPHOLOGY COMMENT NORMAL; RBC MORPHOLOGY COMMENT NORMAL
--- NOTE | 2018-10-12 08:00 | NUR ---
Pt received resting in bed with . Alert and oriented x2 with period of confusion, forgetfulness. Oriented to staff and surroundings, and encouraged to press call harris if help needed. Pt verbalized understanding of teaching. Meds given as ordered. Fall precautions maintained. Call harris within reach. Will monitor.
[2018-10-12] MEDS: ALLOPURINOL 300 MG TAB PO SCH (08:10)
[2018-10-12] MEDS: CARVEDILOL 3.125 MG TAB PO SCH ×2 (08:10→17:18)
[2018-10-12] MEDS: CLOPIDOGREL BISULFATE 75 MG TAB PO SCH (08:10)
[2018-10-12] MEDS: PANTOPRAZOLE SOD 40 MG TABEC PO SCH (08:10)
[2018-10-12] MEDS: ANAGRELIDE HCL 0.5 MG CAP PO SCH ×2 (08:10→17:18)
--- NOTE | 2018-10-12 09:03 | NUR ---
CM FAXED CLINICALS INCLUDING P.T. NOTES TO [facility] AT [phone] CONFIRMATION REC'D
--- NOTE | 2018-10-12 11:31 | NUR ---
FAXED CLINICALS TO [facility] INCLUDING P.T NOTES ROUNDED WITH DR ACEVES PT AND FAMILY REQUESTING SNF P.T. RECOMMENDS SNF PT OREIENTED X 2 PT'S REQUESTING [facility] HAS BEEN THERE BEFORE CHOICE LETTER SIGNED FOR [facility] [address] WILL COME SUNDAY AND GATHER CLINICALS AND SUBMIT TO INS ORDERS TO TRANSFER WHEN APPROVED
--- NOTE | 2018-10-12 12:33 | Progress Note ---
DATE: October 12, 2018 MEDICINE PROGRESS NOTE SUBJECTIVE: Patient is doing well today with no complaints. Apparenlty, she is not walking far with physical therapy about 10 feet of total. is still making decision about longterm facility. It seems that she wants to go the longterm, but currently he does not think she has any more longterm day with the insurance company. OBJECTIVE VITAL SIGNS: Temperature is 97.6, pulse 97, respiratory rate is 20, blood pressure is 145/73, pulse ox is 95% on room air. LAB FINDINGS: Show white count is 20, hemoglobin 9.5, hematocrit is 33, and platelets of 617. Chemistry: Sodium 142, potassium 3.7, chloride 109, bicarb is 24, anion gap is 12, BUN is 36, creatinine is 0.97, calcium is 8.9. Troponins are negative. PHYSICAL EXAMINATION GENERAL: Not in acute distress. Alert and oriented x3. Cooperative on examination. HEENT: Head is normocephalic and atraumatic. Eyes: Pupils are equal, round and reactive to light bilaterally. Extraocular movements are intact bilaterally. NECK: Supple with good range of motion. THROAT: No evidence of any erythema or exudates in the posterior pharynx. Has poor dentition. PULMONARY: Clear to auscultation bilaterally. No wheezing, no rales, no rhonchi, no crackles appreciated. CARDIOVASCULAR: Positive S1 and S2. No murmurs, rubs, or gallops appreciated. ABDOMEN: Soft, nondistended, nontender to palpation. Bowel sounds present. MUSCULOSKELETAL: Strength is 5/5 throughout. No evidence of any muscle deficit on examination. No weakness appreciated. NEUROLOGICAL: Cranial nerves II through XII are grossly intact. No evidence of any neurological deficits on exam. SKIN: Intact. Warm to touch. Good cap refill. PSYCHIATRIC: Normal affect and mood. EXTREMITIES: No edema. Good range of motion throughout. IMPRESSION AND PLAN 1. Sepsis with leukocytosis concerning for urinary tract infection - Per ID, IV cefepime will discontinue. 2. Chronic kidney disease, stage 3. Creatinine is improved. Now, she is back to baseline. Creatinine is normal. Stop IV fluids. 3. Hypertension - stable, continue same home medications. 4. Syncope, fall - PT recommend longterm facility, which we discussed this with case management, so we are placing at longterm facility to eval. 5. History of coronary artery disease - stable. Continue same home medications, cardioprotective meds, aspirin and Plavix. 6. Fluids, electrolytes and nutrients: Stop IV fluids. 7. Prophylaxis: Lovenox. 8. Disposition: Inpatient. ID consulted. 9. Discharge planning: Plan to discharge home once her white count improves plus she will need a longterm facility placement. Job#: [id number] ALYSSA
[2018-10-12] MEDS ORDERED: MELATONIN 5 MG TABLET PO SCH (21:00)
[2018-10-12] MEDS: SIMVASTATIN 40 MG TAB PO SCH (21:49)
[2018-10-12] MEDS: NORTRIPTYLINE HCL 25 MG CAP PO SCH (21:49)
[2018-10-13] VITALS: BP 131/61
[2018-10-13] MEDS: ACETAMINOPHEN 325 MG TAB PO PRN ×2 (01:55→13:10)
[2018-10-13 04:00] VITALS: BP 127/60
--- NOTE | 2018-10-13 05:23 | NUR ---
Patient laying in bed with HOB slightly elevated. AAO x 2. No sob noted. No acute distress noted. Bed at low position and locked. Call Light within reach and reminded patient to utilize when assistance is needed. Patient stable at this time and will continue to monitor.
[2018-10-13 06:04] LABS: BASOPHILS # (AUTO) 0.1 (0.0-0.1); BASOPHILS % 0.5 % (0.0-1.0); EOSINOPHILS # (AUTO) 0.3 (0.0-0.4); EOSINOPHILS % 1.8 % (0.0-6.0); HEMOGLOBIN 9.4 g/dL (12.0-16.0); LYMPHOCYTES # (AUTO) 1.2 (1.0-3.2); LYMPHOCYTES % 6.2 % (18.0-39.1); MEAN CORPUSCULAR HEMOGLOBIN 25.2 pg (28-32); MEAN CORPUSCULAR HGB CONC 28.5 g/dL (31-35); MEAN CORPUSCULAR VOLUME 88.5 fL (81-99); MONOCYTES # (AUTO) 0.8 (0.2-0.8); NEUTROPHILS # (AUTO) 16.3 (2.1-6.9); NEUTROPHILS % 86.3 % (38.7-80.0); PLATELET COUNT 548 x10e3/uL (140-360); RED BLOOD COUNT 3.73 x10e6/uL (3.6-5.1); RED CELL DISTRIBUTION WIDTH 21.8 % (11.7-14.4)
[2018-10-13 06:25] LABS: ANION GAP 10.8 mmol/L (8-16); BLOOD UREA NITROGEN 30 mg/dL (7-26); BUN/CREATININE RATIO 34 (6-25); CALCIUM 8.8 mg/dL (8.4-10.2); CARBON DIOXIDE 25 mmol/L (22-29); CHLORIDE 110 mmol/L (98-107); CREATININE, SERUM 0.87 mg/dL (0.57-1.11); EST GLOMERULAR FILTRATION RATE > 60 ML/MIN (60-); GLUCOSE 105 mg/dL (74-118); MAGNESIUM 2.3 MG/DL (1.3-2.1); POTASSIUM 3.8 mmol/L (3.5-5.1); SODIUM 142 mmol/L (136-145)
[2018-10-13] MEDS: LEVOTHYROXINE SODIUM 50 MCG TAB PO SCH (06:35)
[2018-10-13] MEDS: ALBUTEROL SULF 0.083% NEB SOLN 3 ML NEB NEB SCH ×3 (07:06→22:05)
[2018-10-13 08:00] VITALS: BP 127/60
[2018-10-13] MEDS: ALLOPURINOL 300 MG TAB PO SCH (08:19)
[2018-10-13] MEDS: PANTOPRAZOLE SOD 40 MG TABEC PO SCH (08:19)
[2018-10-13] MEDS: CLOPIDOGREL BISULFATE 75 MG TAB PO SCH (08:19)
[2018-10-13] MEDS: CARVEDILOL 3.125 MG TAB PO SCH ×2 (08:19→17:37)
[2018-10-13] MEDS: ANAGRELIDE HCL 0.5 MG CAP PO SCH ×2 (08:19→17:37)
[2018-10-13 08:20] VITALS: BP 127/60
--- NOTE | 2018-10-13 08:20 | NUR ---
Pt resting in bed. All meds given as ordered. Call harris within reach. Pt turned and repositioned q2h. Emotional support given. Will monitor
[2018-10-13] MEDS ORDERED: DOCUSATE SODIUM 100 MG CAP PO PRN (09:15)
--- NOTE | 2018-10-13 09:45 | Progress Note ---
DATE OF SERVICE: October 13, 2018 MEDICINE PROGRESS NOTE SUBJECTIVE: Patient is doing well with no other issues. She reports being very constipated as well as anxious. Ativan and stool softener has been added. LABS: White count 18, hemoglobin 9.4, hematocrit is 33, and platelets of 548. Chemistry: Sodium 142, potassium 3.8, chloride 107, bicarb 25, anion gap is 10, BUN is 30, creatinine is 0.7. Urinalysis negative. Blood and urine cultures negative. PHYSICAL EXAMINATION VITAL SIGNS: Temperature is 97.3, pulse 95, respiratory rate is 18, blood pressure 127/62, pulse ox is 95% on 3 liters. GENERAL: Not in acute distress, alert and oriented x3. Cooperative on examination. HEENT: Head normocephalic, atraumatic. Eyes: Pupils are equal, round, and reactive to light bilaterally. Extraocular movements intact bilaterally. Throat: No evidence of any erythema or exudates in the posterior pharynx. Has poor dentition. NECK: Supple with good range of motion. PULMONARY: Clear to auscultation bilaterally. No wheezing, no rales, no rhonchi, no crackles appreciated. CARDIOVASCULAR: Positive S1 and S2. No murmurs, rubs, or gallops appreciated. ABDOMEN: Soft, nondistended, nontender to palpation. Bowel sounds present. MUSCULOSKELETAL: Strength is 5/5 throughout. No evidence of any muscle deficits on examination. No weakness appreciated. NEUROLOGICAL: Cranial nerves II through XII grossly intact. No evidence of any neurological deficits on exam. SKIN: Intact. Warm to touch. Good cap refill. PSYCHIATRIC: Normal affect and mood. EXTREMITIES: No edema. Good range of motion throughout. IMPRESSION AND PLAN 1. Sepsis with leukocytosis concerning for urinary tract infection - all antibiotics have been stopped. ID is following. There is no urinary tract infection. 2. Chronic kidney disease, stage 3. Creatinine improved at baseline. Continue to follow. 3. Hypertension - stable, continue same home medications. 4. Syncope with fall - PT and OT evaluation has been on the case. Pending [facility] facility to place. 5. History of coronary artery disease - continue cardioprotective meds, aspirin and Plavix. 6. Generalized anxiety - started on low dose Ativan p.r.n. b.i.d. 7. Fluids, electrolytes, and nutrients. Stop IV fluids. 8. Prophylaxis. Lovenox. 9. Disposition - inpatient. ID is following. DISCHARGE PLANNING: Patient now wants to go [facility] facility, which will likely be arranged on Sunday. Once improved, she will be able to be discharged. Job#: [id number] YONI
[2018-10-13 12:00] VITALS: BP 115/56
[2018-10-13] MEDS ORDERED: LACTULOSE SYRUP 20 GM/30 ML UDC PO ONE (13:00)
[2018-10-13] MEDS: LORAZEPAM 0.5 MG TAB PO PRN ×2 (13:10→21:00)
[2018-10-13 20:00] VITALS: BP 122/59
--- NOTE | 2018-10-13 20:30 | NUR ---
RECEIVED PT IN BED AOX1 .PT IS CONFUSED AND WANTS TO GET OUT OF THE BED .DENIES PAIN BED LOW POSITION BED ALARM ON .CONTINUE TO MONITOR
[2018-10-13] MEDS: SIMVASTATIN 40 MG TAB PO SCH (21:00)
[2018-10-13] MEDS: NORTRIPTYLINE HCL 25 MG CAP PO SCH (21:00)
[2018-10-13] MEDS: MELATONIN 5 MG TABLET PO PRN (22:08)
[2018-10-14] VITALS (9 sets, daily range): BP systolic 109–145; BP diastolic 49–66
[2018-10-14 05:42] LABS: BASOPHILS # (AUTO) 0.1 (0.0-0.1); BASOPHILS % 0.4 % (0.0-1.0); EOSINOPHILS # (AUTO) 0.2 (0.0-0.4); EOSINOPHILS % 0.8 % (0.0-6.0); HEMATOCRIT 32.9 % (34.2-44.1); HEMOGLOBIN 9.1 g/dL (12.0-16.0); LYMPHOCYTES # (AUTO) 0.9 (1.0-3.2); MEAN CORPUSCULAR HEMOGLOBIN 24.6 pg (28-32); MEAN CORPUSCULAR HGB CONC 27.7 g/dL (31-35); MEAN CORPUSCULAR VOLUME 88.9 fL (81-99); MONOCYTES # (AUTO) 0.8 (0.2-0.8); MONOCYTES % 3.3 % (4.4-11.3); PLATELET COUNT 561 x10e3/uL (140-360); RED CELL DISTRIBUTION WIDTH 21.4 % (11.7-14.4)
--- NOTE | 2018-10-14 05:45 | NUR ---
PT WAS AGITATED DURING THE NIGHT .NOW PT RESTING .NO ACUTE DISTRESS NOTED .CALL LIGHT WITH IN REACH
[2018-10-14] MEDS: ALBUTEROL SULF 0.083% NEB SOLN 3 ML NEB NEB SCH ×3 (06:00→22:50)
[2018-10-14 06:05] LABS: ANION GAP 9.8 mmol/L (8-16); BLOOD UREA NITROGEN 24 mg/dL (7-26); BUN/CREATININE RATIO 30 (6-25); CALCIUM 8.8 mg/dL (8.4-10.2); CARBON DIOXIDE 23 mmol/L (22-29); CHLORIDE 113 mmol/L (98-107); EST GLOMERULAR FILTRATION RATE > 60 ML/MIN (60-); GLUCOSE 114 mg/dL (74-118); POTASSIUM 3.8 mmol/L (3.5-5.1); SODIUM 142 mmol/L (136-145)
[2018-10-14] MEDS: LEVOTHYROXINE SODIUM 50 MCG TAB PO SCH (06:16)
--- NOTE | 2018-10-14 07:22 | NUR ---
WBC IS 23.[address] ACEVES AND HE SAID HE WILL COME AND TAKE CARE OF IT .REPORT GIVEN TO THE ON COMING NURSE.
--- NOTE | 2018-10-14 07:50 | NUR ---
PATIENT IS IN STABLE CONDITION WITH NO S/S OF RESPIRATORY DISTRESS. NO PAIN VOICED. MOHINDER HOSE AND HEEL PROTECTORS APPLIED. BED ALARM ON. CALL LIGHT WITHIN REACH, INSTRUCTED TO CALL FOR ASSISTANCE NEEDED.
[2018-10-14] MEDS: BALSAM PERU/CASTOR OIL 60 GM OINT...G. TP SCH (08:50)
[2018-10-14] MEDS: ALLOPURINOL 300 MG TAB PO SCH (08:52)
[2018-10-14] MEDS: CLOPIDOGREL BISULFATE 75 MG TAB PO SCH (08:52)
[2018-10-14] MEDS: PANTOPRAZOLE SOD 40 MG TABEC PO SCH (08:52)
[2018-10-14] MEDS: ANAGRELIDE HCL 0.5 MG CAP PO SCH ×2 (08:52→16:24)
[2018-10-14] MEDS: CARVEDILOL 3.125 MG TAB PO SCH ×2 (08:52→16:24)
--- NOTE | 2018-10-14 09:14 | NUR ---
PT HAS SNF ORDER, FILLED OUT RTF AND PASRR, PUT IN CHART AND GAVE INFORMATION TO NURSE AT STATION.
--- NOTE | 2018-10-14 14:14 | NUR ---
PATIENT URINATED- DIAPER CHANGED. ALLEVYN APPLIED. PATIENT REPOSITION IN BED TO HER LEFT SIDE. BED ALARM ON. CALL LIGHT WITHIN PATIENT'S REACH.
--- NOTE | 2018-10-14 17:14 | NUR ---
WOUND CARE NURSE CONSULTATION. 73 YEAR OLD FEMALE ADMITTED TO [facility] WITH DX ACUTE RENAL FAILURE, AMS, DEHYDRATION, SEPSIS AND LEFT ARM FRACTURE. HEAD TO TOE SKIN ASSESSMENT PERFORMED TODAY, PT PRESENTS WITH A 8X8.2X0.1CM STAGE II PRESSURE ULCER TO SACRUM AND BILATERAL BUTTOCKS. ORDERS IN CHART FOR VENELEX DAILY FORM DR. ACEVES. LEFT UPPER EXTREMITY, LEFT HIP AND RIGHT FOREARM BRUISING POST FALL AT HOME. DR. SANCHEZ CONSULTED IN REGARDS LEFT UPPER EXTREMITY FRACTURE. SLING IN PLACE. THERE ARE NO OTHER AREAS OF CONCERN NOTED AT THIS TIME. LABS: WBC: 23.36 ALB: 2.4 GLUCOSE: 114 URINE AND BLOOD CX PENDING. RECOMMENDATIONS: CONTINUE WITH ALTERNATING LOW AIR LOSS MATTRESS CONTINUE WITH BILATERAL HEEL PROTECTORS TURN PT EVERY TWO HOURS AND PRN. APPLY VENELEX OINTMENT TO SACRUM AND BILATERAL BUTTOCKS DAILY AND COVER WITH FOAM DRESSING. THANKS FOR THIS CONSULTATION. Addendum: 10/14/18 at 1720 by Naz Navarrete RN Amended: Links added.
--- NOTE | 2018-10-14 18:24 | Progress Note ---
DATE: October 14, 2018 MEDICINE PROGRESS NOTE SUBJECTIVE: Patient is doing well today with no complaints. She is working with PT and OT. We are still waiting for assisted facility placement. Now, her white count has been elevated since the day of admission. The patient is afebrile with no complaints. There is no source of infection. It seems that the patient may have some underlying hematological disorder in which she already has, and which I will go ahead and consult hematology. OBJECTIVE VITALS: Temperature is 98.5, respiratory rate is 18, blood pressure is 138/61, pulse ox 95% on room air. GENERAL: Not in acute distress. Alert and oriented times 3. Cooperative on examination. HEENT: Head is normocephalic and atraumatic. Eyes: Pupils equal, round and reactive to light bilaterally. Extraocular movements intact bilaterally. NECK: Supple. Good range of motion. Throat with no evidence of any erythema or exudates in the posterior pharynx. Has poor dentition. PULMONARY: Clear to auscultation bilaterally. No wheezing. No rales. No rhonchi. No crackles appreciated. CARDIOVASCULAR: Positive S1 and S2. No murmurs, rubs or gallops appreciated. ABDOMEN: Soft, nondistended and nontender to palpation. Bowel sounds present. MUSCULOSKELETAL: Strength is 5/5 throughout. No evidence of any muscle deficit on examination. No weakness appreciated. NEUROLOGICAL: Cranial nerves II-XII are grossly intact. No evidence of any neurological deficits on exam. SKIN: Intact. Warm to touch. Good cap refill. PSYCHIATRIC: Normal affect and mood. EXTREMITIES: No edema. Good range of motion throughout. LAB FINDINGS: Show a white count of 23, hemoglobin 9.1, hematocrit is 32, and platelets are 561,000. Chemistry: Sodium 143, potassium 3.8, chloride 113, bicarb 23, anion gap of 9, BUN is 24, creatinine is 0.8, glucose is 114. Calcium is 8.8. Urinalysis none. Urine culture was found to be negative. Blood cultures were found to be negative. IMPRESSION 1. Sepsis with leukocytosis: Concerning for urinary tract infection. Per infectious disease, all antibiotics have been stopped. The patient has no fever. No source of infection. I feel like the leukocytosis is secondary to some hematological disorder, and possibly reactive as well. I do not feel like there is any infectious etiology. 2. Chronic kidney disease, stage 3: Creatinine has improved at baseline. Continue to monitor. 3. Hypertension, stable: Continue same home medications. 4. Syncope with fall: Physical therapy and occupational therapy to evaluate. Pending assisted facility placement. 5. History of coronary artery disease: Will continue cardioprotective meds of aspirin and Plavix. 6. Generalized anxiety: Continue with Ativan p.r.n. 7. Fluids, electrolytes and nutrients: Continue to monitor. 8. Prophylaxis: Lovenox. 9. Disposition: Inpatient infectious disease and now hematology has been consulted. DISCHARGE PLANNING: Once the patient is accepted to assisted, she will be discharged. The leukocytosis can be treated as an outpatient by cotton feeder. At this time, we will consult. Should not delay her discharge. Job#: [id number] ALEK
--- NOTE | 2018-10-14 19:26 | NUR ---
PATIENT IS IN STABLE CONDITION WITH NO S/S OF RESPIRATORY DISTRESS. NO PAIN VOICED. PATIENT TURNED TO HER RIGHT SIDE. DIAPER AND BED SHEETS CHANGED. MOHINDER HOSE AND HEEL PROTECTORS APPLIED. PRESENT IN ROOM. BED ALARM ON. CALL LIGHT WITHIN REACH, INSTRUCTED TO CALL FOR ASSISTANCE NEEDED. REPORT GIVEN TO ONCOMING NURSE.
--- NOTE | 2018-10-14 19:51 | NUR ---
PT IS RESTING IN BED WITH AT BEDSIDE. NO RESPIRATORY DISTRESS NOTED. BED IN THE LOWEST POSITION, LOCKED, BED ALARM ON, AND CALL LIGHT WITHIN REACH. WILL CONTINUE TO MONITOR.
[2018-10-14] MEDS: NORTRIPTYLINE HCL 25 MG CAP PO SCH (20:13)
[2018-10-14] MEDS: SIMVASTATIN 40 MG TAB PO SCH (20:13)
[2018-10-14] MEDS: MELATONIN 5 MG TABLET PO PRN (22:33)
[2018-10-15 00:36] VITALS: BP 133/56
[2018-10-15 05:33] VITALS: BP 142/63
[2018-10-15] MEDS: LEVOTHYROXINE SODIUM 50 MCG TAB PO SCH (05:39)
--- NOTE | 2018-10-15 06:07 | NUR ---
PT IS RESTING IN BED. NO RESPIRATORY DISTRESS NOTED. BED IN LOWEST POSITION, LOCKED, BED ALARM ON, AND CALL LIGHT WITHIN REACH. WILL CONTINUE TO MONITOR.
[2018-10-15 06:08] LABS: HEMATOCRIT 35.8 % (34.2-44.1); HEMOGLOBIN 10.2 g/dL (12.0-16.0); MEAN CORPUSCULAR HEMOGLOBIN 25.2 pg (28-32); MEAN CORPUSCULAR HGB CONC 28.5 g/dL (31-35); MEAN CORPUSCULAR VOLUME 88.4 fL (81-99); PLATELET COUNT 557 x10e3/uL (140-360); RED BLOOD COUNT 4.05 x10e6/uL (3.6-5.1); RED CELL DISTRIBUTION WIDTH 21.6 % (11.7-14.4)
[2018-10-15 06:24] LABS: ANION GAP 9.8 mmol/L (8-16); BLOOD UREA NITROGEN 22 mg/dL (7-26); BUN/CREATININE RATIO 28 (6-25); CALCIUM 9.2 mg/dL (8.4-10.2); CARBON DIOXIDE 25 mmol/L (22-29); CHLORIDE 108 mmol/L (98-107); CREATININE, SERUM 0.78 mg/dL (0.57-1.11); EST GLOMERULAR FILTRATION RATE > 60 ML/MIN (60-); GLUCOSE 113 mg/dL (74-118); POTASSIUM 3.8 mmol/L (3.5-5.1); SODIUM 139 mmol/L (136-145)
[2018-10-15] MEDS: ALBUTEROL SULF 0.083% NEB SOLN 3 ML NEB NEB SCH ×2 (06:45→13:00)
--- NOTE | 2018-10-15 07:25 | NUR ---
PATIENT IS IN STABLE CONDITION WITH NO S/S OF RESPIRATORY DISTRESS. NO PAIN VOICED. MOHINDER HOSE AND HEEL PROTECTORS APPLIED; BED ALARM ON. CALL LIGHT IS WITHIN REACH, INSTRUCTED TO CALL FOR ASSISTANCE NEEDED.
[2018-10-15 08:10] VITALS: BP 132/60
[2018-10-15] MEDS: CLOPIDOGREL BISULFATE 75 MG TAB PO SCH (08:58)
[2018-10-15] MEDS: PANTOPRAZOLE SOD 40 MG TABEC PO SCH (08:58)
[2018-10-15] MEDS: ALLOPURINOL 300 MG TAB PO SCH (08:58)
[2018-10-15] MEDS: CARVEDILOL 3.125 MG TAB PO SCH ×2 (08:58→16:05)
[2018-10-15] MEDS: ANAGRELIDE HCL 0.5 MG CAP PO SCH ×2 (08:58→16:05)
[2018-10-15 09:04] LABS: ANISOCYTOSIS MODE; HYPOCHROMASIA MODERATE; PLATELET ESTIMATE SLIGHTLY INCREASED; PLATELET MORPHOLOGY COMMENT FEW GIANT; POIKILOCYTOSIS SLIGHT; RBC MORPHOLOGY COMMENT ABNORMAL
[2018-10-15] MEDS: BALSAM PERU/CASTOR OIL 60 GM OINT...G. TP SCH (09:04)
[2018-10-15 10:30] VITALS: BP 132/60
--- NOTE | 2018-10-15 10:51 | Consultation ---
DATE OF CONSULTATION: October 14, 2018 Courtney Riddle is a 73-year-old white female, a patient of mine with polycythemia vera, presently on Agrylin for thrombocythemia. The patient has been on Hydrea before. The patient fractured the left humerus and subsequently came to the ER and was admitted under Dr. Aceves. SOCIAL HISTORY: Noncontributory. FAMILY HISTORY: Noncontributory. ALLERGIES REPORTED: CODEINE. MEDICATIONS AT THIS TIME 1. Albuterol. 2. Plavix. 3. Protonix. 4. Ondansetron. 5. Tylenol with Codeine. 6. Coreg. 7. Docusate. 8. Nortriptyline. 9. Agrylin. 10. Melatonin. REVIEW OF SYSTEMS HEENT: Normal. CARDIAC: History of hypertension. History of severe peripheral arterial disease for which she had stenting in the lower extremities. RESPIRATORY: History of COPD. GI: Normal. : Normal. MUSCULOSKELETAL: Fracture of the left humerus. NEUROENDOCRINE: Essentially normal. PHYSICAL EXAMINATION GENERAL: Moderately built female. Anemic. No palpable adenopathy. HEART: Within normal limits. LUNGS: Clear. ABDOMEN: Soft. RECTAL AND VAGINAL: Examinations deferred. CENTRAL NERVOUS SYSTEM: Essentially normal. EXTREMITIES: She wears a left upper extremity brace. LABS: Hemoglobin of 9.1, hematocrit 32.9, white count of 23,300, platelets 561,000. IMPRESSION 1. Polycythemia vera. 2. Myelofibrosis. 3. Hypoalbuminemia. 4. Congestive heart failure by chest x-ray. 5. Chronic renal failure. 6. Hypoproteinemia. 7. Urinary tract infection by multiple bacteria in the urine. 8. Peripheral arterial disease. 9. Left humerus fracture. 10. PIF. PLAN, COMMENTS AND SUGGESTIONS: No hematological intervention at this time. The patient is stable. Once out, I will follow her as usual as an outpatient. Thank you. Job#: [id number] cc:FREDDIE ACEVES MD
[2018-10-15 11:44] VITALS: BP 142/64
[2018-10-15 11:52] LABS: EOSINOPHILS % (MANUAL) 3 % (0-7); LYMPHOCYTES % (MANUAL) 4 % (19-48); MONOCYTES % (MANUAL) 2 % (3.4-9.0); NEUTROPHILS % (MANUAL) 91 % (40-74)
--- NOTE | 2018-10-15 13:51 | NUR ---
SNF TRANSFER: PT WILL GO TO 301A. CALL REPORT TO [phone]. ASK FOR 300 [place] NURSE. ACCEPTING MD: DR. GISELA SANTIAGO. Addendum: 10/15/18 at 1405 by Silvia Rolle IMM LETTER EXPLAINED TO PT. VERBALIZED UNDERSTANDING. IMM LETTER WAS SIGNED BY THE PT AND COPY TO PT(TRANSITIONAL CARE FOLDER) AND COPY TO CHART.
--- NOTE | 2018-10-15 14:48 | NUR ---
CALLED [facility]- TRANSFER REPORT GIVEN TO CARLTON MCADAMS AT [phone].
[2018-10-15 16:00] VITALS: BP 136/63
--- NOTE | 2018-10-15 16:39 | NUR ---
PATIENT IS TRANSFERRING TO [facility] ROOM [facility]- PATIENT DISCHARGE OFF THE UNIT AT 1639 PER STRETCHER BY 2 PERSON EMS SERVICE. PATIENT IS IN STABLE CONDITION WITH NO S/S OF RESPIRATORY DISTRESS. NO PAIN VOICED. IV SALINE LOCKED TO RIGHT FOREARM 20G. LEFT ARM IMMOBILIZER APPLIED. TRANSFER PACKAGE GIVEN TO EMS SERVICE. ALL PERSONAL ITEMS TAKEN WITH THE PATIENT AND EMS SERVICE. PRESENT IN ROOM.
--- NOTE | 2018-10-15 18:51 | Discharge Summary ---
DISCHARGE DIAGNOSES: 1. Sepsis with leukocytosis, initially concerning for urinary tract infection, but sepsis was ruled out and antibiotics were discontinued. 1. Chronic kidney disease stage 3. 2. Hypertension. 3. Recent syncopal fall with left humerus fracture. Patient presented with the left humerus fracture and already followed up with Orthopedics as an outpatient. 4. Leukocytosis secondary to polycythemia vera. CONSULTANTS: Hematology, Infectious Disease. VITAL SIGNS: Temperature is 98.8, pulse 86, respiratory rate is 18, blood pressure 142/64, pulse ox 98% on 2 liters nasal cannula. LAB FINDINGS: Show white count of 22, hemoglobin 10, hematocrit 35, platelets of 567. CHEMISTRY: Sodium 139, potassium 3.8, chloride 109, bicarb 25, anion gap of 9.8, BUN of 22, creatinine is 0.78, glucose is 113. Calcium is 9.2. Troponins were negative. LFTs were normal. Urinalysis was negative. IMAGING STUDIES: Chest x-ray showed an acute comminuted proximal left humerus fracture partially visualized. CT brain, no acute findings. HOSPITAL COURSE: This is a 73-year-old female who came into the ED initially with underlying confusion, found to have a possible underlying urinary tract infection and was admitted for further evaluation. Urine cultures were negative. Patient was on IV antibiotics. ID was consulted and felt that the patient does not need any more antibiotics and felt like that the patient did not have an infection. Antibiotics were discontinued. Patient also had underlying CKD stage 3. She worked with PT and OT [facility] in which she will be discharged to [facility]. Patient's blood pressure was well managed and controlled. Patient's leukocytosis was elevated. 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 At this time the patient has been cleared by Hematology and ID standpoint. Patient will be discharged to a group home facility. On the day of discharge, vital signs stable, labs reviewed and stable. Patient seen and evaluated and examined thoroughly on the day of discharge with no new complaints. Patient verbalized understanding and agreed with the plan of care, to follow up accordingly as an outpatient with the primary care physician in 1 week. DISCHARGE MEDICATIONS: See med reconciliation form. DISPOSITION: To group home. CONDITION: Stable. In the event of any worsening symptoms, the patient advised to come back to the ED for further evaluation. Discharge summary took greater than 35 minutes. FREDDIE ACEVES MD Job#: [id number] EV
== END 2018-10-15 16:39 | DRG 871 ==
LOC: ER 10:18 → ERHOLD 11:05 → MED/SURG3 13:41
PROVIDERS: ADMIT Internal Medicine; ATTEND Internal Medicine
DX: A41.9 Sepsis, unspecified organism (principal); I50.33 Acute on chronic diastolic (congestive) heart failure; N17.9 Acute kidney failure, unspecified; I13.0 Hypertensive heart and chronic kidney disease with heart failure and stage 1 through stage 4 chronic kidney disease, or unspecified chronic kidney disease; D45 Polycythemia vera; N18.3 Chronic kidney disease, stage 3 (moderate); S42.302D Unspecified fracture of shaft of humerus, left arm, subsequent encounter for fracture with routine healing; W19.XXXD Unspecified fall, subsequent encounter; D69.59 Other secondary thrombocytopenia; E88.09 Other disorders of plasma-protein metabolism, not elsewhere classified; E77.8 Other disorders of glycoprotein metabolism; I73.9 Peripheral vascular disease, unspecified; F41.1 Generalized anxiety disorder; I25.10 Atherosclerotic heart disease of native coronary artery without angina pectoris; E86.0 Dehydration; M10.9 Gout, unspecified; E03.9 Hypothyroidism, unspecified; E86.1 Hypovolemia
CPT/HCPCS: 36415; 51700; 70450; 71045; 80048; 80053; 81001; 82550; 82553; 83605; 83735; 83880; 84484; 85007; 85025; 85027; 87040; 87086; 93005; 94640; 97139; 99284; J0692; J1940; J3370; J7030